=== PATIENT | female | born 1940 | race Caucasian/White ===

== ENCOUNTER 2017-05-22 06:24 | Inpatient (IN) | payer OTHER ==
[2017-05-22 06:33] VITALS: BMI 26.1
--- NOTE | 2017-05-22 07:15 | PDOC ---
*Physical Exam - Vital Signs Last Vital Signs Temp Pulse Resp BP Pulse Ox 97.5 F L 71 20 158/77 96 05/22/17 06:32 05/22/17 06:32 05/22/17 06:32 05/22/17 06:32 05/22/17 06:32 ED Treatment Course - LABORATORY CBC & Chemistry Diagram: 05/22/17 07:45 05/22/17 07:45 Medical Decision Making - Critical Care Time Total Critical Care Time (minutes): 30 Critical Care Statement: The care of this patient involved high complexity decision making to prevent further life threatening deterioration of the patient 's condition and/or to evalute & treat vital organ system(s) failure or risk of failure. - Medical Decision Making 05/22/17 12:00 Agree with LATIN AMERICAN STUDIES PROFESSOR's evaluation, assessment, and plan. Attending Assessment: 77F with seizure d/o on keppra presents to ER after being found down after falling down 9 steps. Fall possibly 2/2 seizure, though pt with no notable post- ictal period. CT C-spine shows possible unstable fx at C2. CT head negative. Pt with full strength and sensation on exam, no appreciable neuro deficits. - frequent neuro checks - C-spine precautions - neurosurgery evaluation - Labs, keppra level 05/22/17 16:[address] Wood on tele monitor for likely nsgy procedure. *DC/Admit/Observation/Transfer Diagnosis at time of Disposition: Seizure Hangman's fracture Qualifiers: Encounter type: initial encounter Fracture type: closed Qualified Code(s): S12.100A - Unspecified displaced fracture of second cervical vertebra, initial encounter for closed fracture Thoracic spine fracture Qualifiers: Thoracic vertebra fracture level: T5 Fracture type: closed Fracture morphology : burst- stable Fracture healing: with routine healing Syncope Qualifiers: Syncope type: unspecified Qualified Code(s): R55 - Syncope and collapse - Discharge Dispostion Condition at time of disposition: Stable Admit: Yes - Attestations Physician Attestion: 05/22/17 16:33 I, Dr. Sohail Ahmadi MD, attest that this document has been prepared under my direction and personally reviewed by me in its entirety. I further attest, that it accurately reflects all work, treatment, procedures and medical decision -making performed by me.
--- NOTE | 2017-05-22 07:25 | PDOC ---
History of Present Illness - General Chief Complaint: Injury Stated Complaint: FALL Time Seen by Provider: 05/22/17 07:15 History Source: Patient Exam Limitations: No Limitations - History of Present Illness Initial Comments: 05/22/17 07:25 CHIEF COMPLAINT: Fall HISTORY OF PRESENT ILLNESS: This is a 77 year old female with a history of HTN, hypothyroidism, seizure disorder (on Keppra, no missed doses, last seizure about one year ago), and dementia brought in by ambulance accompanied by her family after an unwitnessed fall. History is provided by her daughter at bedside. Family heard the patient fall and found her at the bottom of 9 stairs. She was "out of it" for about 15 minutes following the fall, in the same manner that she usually is after a seizure. She has not been able to recall events, but does complain of back pain. She was able to walk to She does not take any anticoagulant or anti-platelet agents. V/s on arrival are unremarkable. PCP is Dr. Flores in [place]. REVIEW OF SYSTEMS: Limited by dementia. Complains of back pain. PHYSICAL EXAM: GENERAL: The patient is awake, alert, oriented x 1 (baseline), in some distress secondary to pain. HEAD: Normal with no signs of trauma. ENT: Pupils equal, round and reactive to light, extraocular movements intact, sclera anicteric, conjunctiva clear. Neck supple. Right mandibular ecchymosis. No tenderness or bony crepitus. LUNGS: Clear to auscultation bilaterally. Normal excursion. No respiratory distress or use of accessory muscles. CV: RRR, S1/S2, no MRG. Cap refill < 2 sec. ABDOMEN: Soft, non-distended, non-tender, reducible ventral hernia. EXTREMITIES: Normal range of motion, no edema. Abrasions over right knee. No ligament laxity. NEUROLOGICAL: Normal speech. CN II-XII grossly intact. No cervical spinal tenderness. Diffuse thoracic and lumbar vertebral tenderness. PSYCH: Normal mood, normal affect. SKIN: Warm, dry, normal turgor. Past History - Past Medical History Allergies/Adverse Reactions: Allergies Allergy/AdvReac Type Severity Reaction Status Date / Time Penicillins Allergy Verified 05/22/17 06:32 Home Medications: Ambulatory Orders Levetiracetam [Keppra] 1,500 mg PO BID 11/25/13 Levothyroxine [Synthroid -] 75 mcg PO DAILY 11/25/13 Losartan Potassium 50 mg PO DAILY 11/25/13 Anemia: No Asthma: No Cancer: No Cardiac Disorders: No CVA: No COPD: No CHF: No Dementia: Yes Diabetes: No GI Disorders: No Disorders: No HTN: Yes Hypercholesterolemia: No Liver Disease: No Seizures: Yes Thyroid Disease: Yes - Surgical History Abdominal Surgery: No Appendectomy: No Cardiac Surgery: No Cholecystectomy: Yes Lung Surgery: No Neurologic Surgery: No Orthopedic Surgery: No - Immunization History Immunization Up to Date: Yes - Psycho/Social/Smoking Cessation Hx Anxiety: No Suicidal Ideation: No Smoking Status: No Smoking History: Never smoked Have you smoked in the past 12 months: No Number of Cigarettes Smoked Daily: 0 Information on smoking cessation initiated: No Hx Alcohol Use: No Drug/Substance Use Hx: No Substance Use Type: None Hx Substance Use Treatment: No *Physical Exam - Vital Signs Last Vital Signs Temp Pulse Resp BP Pulse Ox 97.5 F L 71 20 158/77 96 05/22/17 06:32 05/22/17 06:32 05/22/17 06:32 05/22/17 06:32 05/22/17 06:32 Heart Score/ECG Review - ECG Intrepretation Comment:: 05/22/17 08:42 Sinus rhythm with PACs. Q wave in III also present on prior EKG 07/2015. ED Treatment Course - LABORATORY CBC & Chemistry Diagram: 05/22/17 07:45 05/22/17 07:45 Medical Decision Making - Medical Decision Making 05/22/17 07:59 A/P: 77 year old female with history of seizure disorder s/p unwitnessed fall down 9 steps. 1. Cervical collar applied 2. EKG 3. Cardiac labs + Keppra level, UA/culture 4. CTH and C-spine 5. Xrays thoracic, lumbar/sacral spine, right knee 6. Ofirmev 1g IVPB for pain 7. Home dose Keppra 8. Re-assess 05/22/17 08:45 WBC 13.8. CPK 693 CK-MB 28 05/22/17 09:[address] spine discussed with Dr. Matt: non-displaced transverse fracture of C2 with step-off avulsion fracture of the anterior inferior aspect of C2. T spine CT: acute horizontal fracture traversing the T6 vertebral body. Moderate to marked compression of the T6 vertebral body. Acute nonsidplaced horizontal fractures also noted involving the t^ partes interarticulares bilaterally extending into the lamina to the base of the T6 spinous process. Acute mildly offset fracture of the T6 spinous process. Acute mild to moderate T5 vertebral body compression fracture is noted without bony retropulsion. There is an acute mildly offset fracture of the left T5 transverse process. Acute mildly offset fracture of the T5 spinous process. Acute mildly offset fractures of the T3 and T4 spinous processes. Discussed with Dr. Maya options advisor for neurosurgery. Recommends prompt MRI of cervical and thoracic spines, with CT spine in interim. Family updated with results and plan. 05/22/17 16:09 Troponin repeated. Discussed with Dr. Wood- accepts for admission to telemetry. *DC/Admit/Observation/Transfer Diagnosis at time of Disposition: Seizure Hangman's fracture Qualifiers: Encounter type: initial encounter Fracture type: closed Qualified Code(s): S12.100A - Unspecified displaced fracture of second cervical vertebra, initial encounter for closed fracture Fracture of thoracic spine Qualifiers: Thoracic vertebra fracture level: T5 Fracture type: closed Fracture morphology : burst- stable Fracture healing: with routine healing Syncope Qualifiers: Syncope type: unspecified Qualified Code(s): R55 - Syncope and collapse - Discharge Dispostion Condition at time of disposition: Guarded Admit: Yes
[2017-05-22] MEDS ORDERED: ACETAMINOPHEN 1000 MG/100 ML VIAL (NON FORMULARY) IVPB ONE (07:26)
[2017-05-22 08:00] LABS: BASOPHIL 0.6 % (0-2.0); EOSINOPHIL 1.6 % (0-4.5); MCH 29.8 pg (25.7-33.7); MEAN CELL VOLUME 90.3 fl (80-96); MEAN PLT VOLUME 7.5 fl (7.5-11.1); NEUTROPHILS 79.3 % (42.8-82.8); PLATELET COUNT 211 K/MM3 (134-434); RDW 13.4 % (11.6-15.6); WHITE BLOOD COUNT 13.8 K/mm3 (4.0-10.0)
[2017-05-22 08:21] LABS: ALBUMIN 3.4 g/dl (3.4-5.0); ANION GAP 10 (8-16); BILIRUBIN,TOTAL 0.3 mg/dL (0.2-1.0); CALCIUM 8.7 mg/dL (8.5-10.1); CO2 23 mmol/L (21-32); CREATININE 1.1 mg/dL (0.55-1.02); GLUCOSE,RANDOM 154 mg/dL (74-106); SGOT/AST 39 U/L (15-37); SGPT/ALT 21 U/L (12-78); TOT PROT 7.3 g/dl (6.4-8.2)
[2017-05-22 08:24] LABS: ALK PHOS 95 U/L (45-117); CPK 693 IU/L (26-192); INR 1.01 (0.82-1.09); PROTHROMBIN TIME (PATIENT) 11.1 SEC (9.98-11.88); TROPONIN I 0.03 ng/ml (0.00-0.05)
[2017-05-22] MEDS ORDERED: ACETAMINOPHEN INJECTION 100 ML IVPB ONE (08:40)
[2017-05-22] MEDS ORDERED: levETIRAcetam 500 MG/5 ML INJECTION VIAL IVPB ONE ×2 (09:49→10:12)
[2017-05-22] MEDS ORDERED: morphine CARPU-JECT 2 MG/1 ML DISP.SYRIN IVPUSH ONE (10:02)
[2017-05-22] MEDS ORDERED: morphine CARPU-JECT 4 MG/1 ML DISP.SYRIN ONE ×2 (10:12→12:42)
--- NOTE | 2017-05-22 10:44 | EKG ---
Test Reason : Blood Pressure : / mmHG Vent. Rate : 061 BPM Atrial Rate : 067 BPM P-R Int : 140 ms QRS Dur : 106 ms QT Int : 438 ms P-R-T Axes : 047 -18 116 degrees QTc Int : 440 ms POOR DATA QUALITY, INTERPRETATION MAY BE ADVERSELY AFFECTED SINUS RHYTHM WITH PREMATURE ATRIAL COMPLEXES WITH ABERRANT CONDUCTION INFERIOR INFARCT , AGE UNDETERMINED POSSIBLE ANTERIOR INFARCT , AGE UNDETERMINED ABNORMAL ECG WHEN COMPARED WITH ECG OF 29-JUL-2015 14:14, ABERRANT CONDUCTION IS NOW PRESENT BORDERLINE CRITERIA FOR ANTERIOR INFARCT ARE NOW PRESENT Confirmed by EVELINA GONZALES MD ([id number]) on 05/22/2017 10:44:07 AM Referred By: Confirmed By:EVELINA GONZALES MD
[2017-05-22] MEDS ORDERED: morphine CARPU-JECT 4 MG/1 ML DISP.SYRIN IVPUSH ONE (12:20)
[2017-05-22] MEDS ORDERED: LACTATED RINGERS SOLUTION 1,000 ML IV SCH (12:30)
[2017-05-22 13:50] LABS: URINE APPEARANCE CLEAR; URINE BILIRUBIN NEGATIVE (NEGATIVE); URINE BLOOD NEGATIVE (NEGATIVE); URINE COLOR LTYELLOW; URINE GLUCOSE (UA) NEGATIVE (NEGATIVE); URINE KETONE NEGATIVE (NEGATIVE); URINE LEUK ESTERASE NEGATIVE (NEGATIVE); URINE NITRITE NEGATIVE (NEGATIVE); URINE PROTEIN NEGATIVE (NEGATIVE); URINE UROBILINOGEN NEGATIVE mg/dL (0.2-1.0)
[2017-05-22] MEDS ORDERED: LORazepam 2 MG/ML SDV VIAL ONE (18:59)
--- NOTE | 2017-05-22 21:35 | HP ---
Admitting History and Physical - Admission History of Present Illness: This is a 77 year old female with a history of HTN, hypothyroidism, seizure disorder (on Keppra, no missed doses, last seizure about one year ago), and dementia brought in by ambulance accompanied by her family after an unwitnessed fall. History is provided by her daughter at bedside. Family heard the patient fall and found her at the bottom of 9 stairs. She was "out of it" for about 15 minutes following the fall, in the same manner that she usually is after a seizure. She has not been able to recall events, but does complain of back pain. She was able to walk to She does not take any anticoagulant or anti- platelet agents. 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 Cardiovascular: Yes: HTN Endocrine: Yes: Hypothyroidism - Past Surgical History Past Surgical History: Yes: Hernia Repair (ventral hernia repaired with mesh) - Smoking History Smoking history: Never smoked Have you smoked in the past 12 months: No Aproximately how many cigarettes per day: 0 - Alcohol/Substance Use Hx Alcohol Use: No - Social History ADL: Independent History of Recent Travel: No Home Medications - Allergies Allergies/Adverse Reactions: Allergies Allergy/AdvReac Type Severity Reaction Status Date / Time Penicillins Allergy Verified 05/22/17 06:32 - Home Medications Home Medications: Ambulatory Orders Levetiracetam [Keppra] 1,500 mg PO BID 11/25/13 Levothyroxine [Synthroid -] 75 mcg PO DAILY 11/25/13 Losartan Potassium 50 mg PO DAILY 11/25/13 Family Disease History - Family Disease History Family History: Unremarkable Review of Systems Unable to obtain ROS, reason: Confusion Physical Examination Vital Signs: Vital Signs Temperature 97.2 F L 05/22/17 20:41 Pulse Rate 67 05/22/17 20:41 Respiratory Rate 18 05/22/17 20:41 Blood Pressure 105/65 05/22/17 20:41 O2 Sat by Pulse Oximetry (%) 98 05/22/17 20:41 HENT: Yes: WNL Neck: Yes: WNL, Supple Cardiovascular: Yes: WNL, Regular Rate and Rhythm Respiratory: Yes: WNL, Regular, CTA Bilaterally Gastrointestinal: Yes: WNL, Normal Bowel Sounds, Soft Edema: No Edema: LLE: Trace, RLE: Trace ...Motor Strength: WNL Problem List - Problems (1) Vertebral fracture Assessment/Plan: At this time there is no medical contraindication for pt to under surgical procedure Cardiac clearance consult Code(s): [id number] - (2) Seizure Code(s): R56.9 - UNSPECIFIED CONVULSIONS (3) Syncope Code(s): R55 - SYNCOPE AND COLLAPSE Qualifiers: Syncope type: unspecified Qualified Code(s): R55 - Syncope and collapse (4) Musculoskeletal pain Code(s): M79.1 - MYALGIA
[2017-05-22] MEDS ORDERED: levETIRAcetam 500 MG TABLET (FP) PO SCH (22:00)
[2017-05-22] MEDS ORDERED: HEPARIN NA (PORCINE) 5,000 UNITS/ML 1ML VIAL SQ SCH (22:00)
[2017-05-22] MEDS ORDERED: DEXTROSE 5%-0.45% SALINE 1,000 ML IV SCH (22:30)
--- NOTE | 2017-05-22 23:22 | CONSULT ---
Consult - text type - Consultation Consultation Note: Asked to see this 77-year-old female with history of seizures who fell down nine stairs this morning just before 6 AM. Patient indicated pain in the thoracic spinal region and was brought into the [facility] emergency room. Patient was evaluated with CT scan of the Head and cervical spine. Head CT was unremarkable for acute pathology. CT cervical spine was notable for moderate spondylosis with hyper lordosis and a vertical Coronal fracture through the body of C2 just anterior to the pars articularis. This is similar to a Hangmans type of fracture. The fracture line extends through both transverse foramina. CT of the thoracic spine demonstrates spinous process fractures of T3, T4, T5 and T6. There is a T5 compression fracture with mild anterior loss of height and T6 burst fracture with mild retropulsion of bone and loss of height. The patient is neurologically nonfocal and at her baseline by report. The patient has a history of dementia. There is acute kyphotic angulation at the T56 level. MRA of the craniocervical junction did not reveal any vertebral artery injuries. MRI of the cervical spine does not demonstrate any spinal cord compression or unexpected ligamentous injury. The sub axial spondylosis is moderate. MRI of the thoracic spine does not demonstrate cord compression although there is angulation at T5 and T6. There is STIR abnormality in the posterior elements of the upper middle thoracic spine. The TLICS score for this patient is 5 (2 morphology/0 neurology/3 posterior ligaments) and surgical stabilization is indicated. I had an extensive discussion with the patient's family including several adult children regarding the nature of her injuries and the natural history. It is hoped that the cervical spine fracture will heal with the mobilization since there is no displacement or separation. Since there is no vertebral artery injury anticoagulation should not be required. The thoracic spine injuries however should be addressed surgically. I explained the risks benefits and alternatives T3-8 stabilization with pedicle screws and mild correction of the deformity. The risks included, but were not limited to: , coma, paralysis, bleeding, infection, leakage of CSF possibly requiring spinal drainage or additional surgery, instrumentation malfunction/Malposition/migration and failure to allow healing and prevent neurological progression. I explained that surgery was not mandatory however given her likelihood of having additional falls and poor compliance with bracing as well as the TLICS score suggesting that surgical intervention would represent the best treatment course, I feel that surgery should be considered. All questions were answered. Informed consent was obtained. There was unanimous agreement among all of the patients children and grandchildren as well as other family and family members that she should proceed with surgery. I offered them the option of seeking another opinion or another surgeon. I also informed them of my planned absence between May 25 and . They asked that we proceed with surgery in the morning. I will discuss the patients medical clearance with Dr. Wood. I also explained that we may need to stabilize the C2 fracture with a posterior instrumentation construct if her collar is insufficient to allow fracture healing or she is unable to tolerate the collar. However, this will be decided at a later date.
[2017-05-23 01:53] LABS: TROPONIN I 0.12 ng/ml (0.00-0.05)
[2017-05-23] MEDS ORDERED: levETIRAcetam 500 MG/5 ML INJECTION VIAL IVPB SCH ×2 (04:00→10:00)
[2017-05-23] MEDS ORDERED: LEVOTHYROXINE NA 75 MCG TABLET (FP) PO SCH (07:00)
--- NOTE | 2017-05-23 08:14 | CON.CARD ---
Consult Consult Specialty:: Cardiology Referred by:: Dr. Wood Reason for Consultation:: Preop Cardiac Evaluation - History of Present Illness Chief Complaint: Fall, unwitnessed History of Present Illness: 77F w/ Seizure disorder (last seizure few months ago), HTN fell down stairs presumably due to seizure resulting in compression fracture of thoracic spine for which surgical stabilization was recommended by N-surgery. I am called to evaluate her prior to surgery. History obtained from daughter at bedside. Ms. Negron has no prior cardiac hx. No WA, no prior PCI apart from chronic HTN. Typically, she walks about her home, stairs, with no difficulties: no reported chest pain or anginal sx; no ACRDENAS, no palps, no edema, no PND, no N/V/ diaphoresis. She was reportedly feeling well yesterday prior to the fall, no CV complaints reported to family. Head CT (first CT) showed no pathology, repeat pending. TELE: NSR. Of note, her CPK is elevated and her TnI levels have been mildly elevated above 0 but not > 0.5. Her O2 saturation is 97% on room air. 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 Cardio/Vascular: Yes: HTN Endocrine: Yes: Hypothyroidism - Past Surgical History Past Surgical History: Yes: Cholecystectomy, Hernia Repair (ventral hernia repaired with mesh) - Alcohol/Substance Use Hx Alcohol Use: No - Smoking History Smoking history: Never smoked Have you smoked in the past 12 months: No Aproximately how many cigarettes per day: 0 - Social History Usual Living Arrangement: With Child ADL: Independent History of Recent Travel: No Home Medications - Allergies Allergies/Adverse Reactions: Allergies Allergy/AdvReac Type Severity Reaction Status Date / Time Penicillins Allergy Verified 05/22/17 06:32 - Home Medications Home Medications: Ambulatory Orders Levetiracetam [Keppra] 1,500 mg PO BID 11/25/13 Levothyroxine [Synthroid -] 75 mcg PO DAILY 11/25/13 Losartan Potassium 50 mg PO DAILY 11/25/13 Family Disease History - Family Disease History Family History: Unremarkable (not pertinent to this presentation) Review of Systems Findings/Remarks: SEE HPI - Review of Systems Constitutional: denies: No Symptoms, Chills, Diaphoresis, Fever, Lethargy, Loss of Appetite, Malaise, Night Sweats, Unintentional Wgt. Loss, Weakness, Other Eyes: denies: No Symptoms, Blind Spots, Blurred Vision, Double Vision, Eye Pain , Floaters, Photophobia, Recent Change in Vision, Other HENT: denies: No Symptoms, Difficult Swallowing, Ear Discharge, Ear Pain, Epistaxis, Gingival Bleeding, Hearing Loss, Mouth Swelling, Nasal Congestion, Ocular Prosthesis, Throat Pain, Toothache, Ringing in Ears, Other Neck: reports: Pain on Movement, Stiffness Cardiovascular: denies: No Symptoms, Chest Pain, Edema, Palpitations, Shortness of Breath, Other Respiratory: denies: No Symptoms, Cough, Exercise Intolerance, Hemoptysis, Orthopnea, PND, Snoring, SOB, SOB on Exertion, Wheezing, Other Gastrointestinal: denies: No Symptoms, Abdominal Pain, Bloating, Constipation, Diarrhea, Dysphagia, Indigestion, Melena, Nausea, Rectal Bleeding, Vomiting, Vomiting Blood, Other Genitourinary: denies: No Symptoms, Burning, Discharge, Dysuria, Flank Pain, Frequency, Hematuria, Incontinence, Lesions, Menses, Pain, Testicular Mass, Testicular Pain, Testicular Swelling, Urgency, Vaginal Bleeding, Other Breasts: denies: No Symptoms Reported, See HPI, Breast Implants, Discharge from Nipple, Lumps, Pain, Skin Changes, Other Musculoskeletal: denies: No Symptoms, Back Pain, Crepitus, Decreased ROM, Extremity Pain, Joint Pain, Joint Swelling, Muscle Pain, Muscle Cramps, Muscle Weakness, Other Integumentary: denies: No Symptoms, Blister, Bruising, Change in Color, Eczema, Erythema, Incision, Lesions, Lump, Pallor, Pruritis, Rash, Wound, Other Neurological: reports: Other (neck brace) Endocrine: reports: No Symptoms Hematology/Lymphatic: reports: No Symptoms Psychiatric: reports: No Symptoms - Risk Factors Known Risk Factors: Yes: Hypertension Vital Signs: Vital Signs Temperature 107 F H 05/23/17 06:51 Pulse Rate 107 H 05/23/17 06:51 Respiratory Rate 20 05/23/17 06:51 Blood Pressure 162/75 05/23/17 06:51 O2 Sat by Pulse Oximetry (%) 97 05/23/17 01:00 Constitutional: Yes: Calm Eyes: Yes: Conjunctiva Clear HENT: Yes: Other (Neck brace) Respiratory: Yes: CTA Bilaterally (no wheezing or rales) Gastrointestinal: Yes: Soft (non-tender) Cardiovascular: Yes: Regular Rate and Rhythm JVD: No Carotid Bruit: No PMI: Non-Displaced Heart Sounds: Yes: S1, S2 (RRR, no murmurs, No .) Edema: No (warm, 2+ DP pulses) Peripheral Pulses WNL: Yes Neurological: Yes: Alert - Other Data Labs, Other Data: INR, PTT INR 1.01 (0.82-1.09) 05/22/17 07:45 Troponin, BNP 05/22/17 05/23/17 17:20 00:50 Troponin I Cancelled 0.12 H Troponin, BNP 05/22/17 05/23/17 17:20 00:50 Troponin I Cancelled 0.12 H Laboratory Tests 05/22/17 05/22/17 05/22/17 07:45 07:45 08:03 WBC Hgb Plt Count Potassium Creatine Kinase 693 H Creatine Kinase Index 4.1 Troponin I 0.03 Urine Color Ltyellow Ur Specific Fitzwilliam <= 1.005 Urine Protein Negative Urine Glucose (UA) Negative Urine Ketones Negative Urine Blood Negative Urine Nitrite Negative Urine Bilirubin Negative Urine Urobilinogen Negative Ur Leukocyte Esterase Negative Levetiracetam Pending 05/23/17 05/23/17 05/23/17 00:50 05:35 05:35 WBC Pending Hgb Pending Plt Count Pending Potassium Pending Creatine Kinase 1145 H Creatine Kinase Index 1.8 Troponin I 0.12 H Urine Color Ur Specific Fitzwilliam Urine Protein Urine Glucose (UA) Urine Ketones Urine Blood Urine Nitrite Urine Bilirubin Urine Urobilinogen Ur Leukocyte Esterase Levetiracetam 05/23/17 05:35 WBC Hgb Plt Count Potassium Creatine Kinase Pending Creatine Kinase Index Troponin I Pending Urine Color Ur Specific Fitzwilliam Urine Protein Urine Glucose (UA) Urine Ketones Urine Blood Urine Nitrite Urine Bilirubin Urine Urobilinogen Ur Leukocyte Esterase Levetiracetam Baseline artifact: NSR 61bpm, cannot r/o old IWMI, Poor R wave progression (possibly due to lead position), NSST changes No acute ST changes to suggest ACS, QTc= 440ms TELE: NSR, rare single VPCs Echo: Pending Imaging - Results Chest X-ray: Report Reviewed, Image Reviewed Cat Scan: Report Reviewed MRI: Report Reviewed EKG: Image Reviewed Problem List - Problems (1) Seizure Code(s): R56.9 - UNSPECIFIED CONVULSIONS (2) Thoracic spine fracture Code(s): S22.009A - UNSP FRACTURE OF UNSP THORACIC VERTEBRA, INIT FOR CLOS FX Qualifiers: Thoracic vertebra fracture level: T5 Fracture type: closed Fracture morphology: burst- stable Fracture healing: with routine healing (3) Abnormal ECG Code(s): R94.31 - ABNORMAL ELECTROCARDIOGRAM [ECG] [EKG] (4) Hypertension Code(s): I10 - ESSENTIAL (PRIMARY) HYPERTENSION Qualifiers: Hypertension type: essential hypertension Qualified Code(s): I10 - Essential (primary) hypertension Assessment/Plan IMP: Probable seizure resulting in fall and thoracic spine fracture Chronic HTN Abnormal/Non-specific ECG REC: 1. There are presently no absolute cardiac contraindications to proposed surgical procedure: she is in normal sinus rhythm, euvolemic and with no evidence of aortic stenosis on exam; there is no history of angina and she is currently chest pain free. 2. Her blood pressure is mildly elevated above goal, but she has not received her usual morning BP medication. D/W RN: will give Losartan with small sip of water. 3. Her ECG shows non-specific changes, with possibly old IWMI and poor R wave progression which may be due to lead position. No acute ST elevations and no ST changes typical of ACS; she is asx. -Will repeat ECG and check Echo for EF assessment this morning. 4. CPK likely elevated due to fall. TnI is borderline elevated (non-zero but < 0.5), which can be seen in setting of acute seizure. ECG and symptoms are not suggestive of ACS. To repeat 3rd enzymes this AM. 5. 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
[2017-05-23 08:20] LABS: BASOPHIL 0.2 % (0-2.0); MCH 29.9 pg (25.7-33.7); MCHC 33.3 g/dl (32.0-36.0); MEAN CELL VOLUME 89.9 fl (80-96); MEAN PLT VOLUME 7.8 fl (7.5-11.1); NEUTROPHILS 85.2 % (42.8-82.8); PLATELET COUNT 171 K/MM3 (134-434); RDW 13.4 % (11.6-15.6); WHITE BLOOD COUNT 10.4 K/mm3 (4.0-10.0)
[2017-05-23 08:47] LABS: CALCIUM 8.9 mg/dL (8.5-10.1)
[2017-05-23 09:01] LABS: ALBUMIN 3.6 g/dl (3.4-5.0); ALK PHOS 96 U/L (45-117); ANION GAP 8 (8-16); BILIRUBIN,TOTAL 0.5 mg/dL (0.2-1.0); CO2 26 mmol/L (21-32); GLUCOSE,RANDOM 109 mg/dL (74-106); SGOT/AST 58 U/L (15-37); SGPT/ALT 33 U/L (12-78); THYROID STIMULATING HORMONE 0.65 uIU/ml (0.358-3.74); TOT PROT 7.8 g/dl (6.4-8.2)
[2017-05-23] MEDS ORDERED: GENTAMICIN SO4 80 MG/2 ML VIAL ONE (09:03)
[2017-05-23 09:13] LABS: CPK 1098 IU/L (26-192); TROPONIN I 0.26 ng/ml (0.00-0.05)
[2017-05-23] MEDS ORDERED: LOSARTAN POTASSIUM 50 MG TABLET (FP) PO SCH (10:00)
--- NOTE | 2017-05-23 10:03 | EKG ---
Test Reason : Blood Pressure : / mmHG Vent. Rate : 108 BPM Atrial Rate : 108 BPM P-R Int : 164 ms QRS Dur : 098 ms QT Int : 350 ms P-R-T Axes : 064 -19 105 degrees QTc Int : 469 ms SINUS TACHYCARDIA NONSPECIFIC ST ABNORMALITY VENT. RATE HAS INCREASED BY 47 BPM BORDERLINE CRITERIA FOR ANTERIOR INFARCT ARE NO LONGER PRESENT CRITERIA FOR INFERIOR INFARCT ARE NO LONGER PRESENT Confirmed by STAR ALEX MD ([id number]) on 05/23/2017 10:03:04 AM Referred By: STAR ALEX Confirmed By:STAR ALEX MD
[2017-05-23] MEDS ORDERED: ROCURONIUM BROMIDE 50 MG/5 ML VIAL ONE (11:09)
[2017-05-23] MEDS ORDERED: PROPOFOL 20 ML ONE (11:09)
[2017-05-23] MEDS ORDERED: SUCCINYLCHOLINE CHLORIDE 200 MG/10 ML VIAL ONE (11:10)
[2017-05-23] MEDS ORDERED: LIDOCAINE HCL 0.5% EPINEPHRINE 1:200,000 50 ML VIAL IJ ONE (11:58)
[2017-05-23] MEDS ORDERED: ceFAZolin SODIUM 1 GM VIAL IVPB ONE (11:59)
[2017-05-23] MEDS ORDERED: ePHEDrine SULFATE 50 MG/1 ML AMPULE ONE (12:54)
[2017-05-23] MEDS ORDERED: BUPIVACAINE HCL/PF 0.5% (5MG/ML) 10 ML VIAL ONE (13:32)
[2017-05-23] MEDS ORDERED: GLYCOPYRROLATE 0.2 MG/1 ML VIAL ONE ×2 (13:50)
[2017-05-23] MEDS ORDERED: NEOSTIGMINE METHYLSULFATE 0.5 MG/ML - 10 ML MDV ONE (13:50)
--- NOTE | 2017-05-23 14:38 | SURG ---
Surgery Assistant Teacher Primary Note Assistant Teacher Primary: Edwardo Rehman PA-C Date of Service: 05/23/17 Diagnosis: 1. Spinous process fractures of T3, T4, T5 and T6. 2. T5 compression fracture 3. T6 burst fracture with mild retropulsion of bone Procedure: Posterior decompression/fusion/instrumentation T4-T8 I was present for the entirety of the operative procedure. For further detail, please refer to operative report. Visit type - Case Type Case Type: ED Admission - Emergency Emergency Visit: Yes ED Registration Date: 05/22/17 Care time: The patient presented to the Emergency Department on the above date and was hospitalized for further evaluation of their emergent condition. - New patient This patient is new to me today: Yes Date on this admission: 05/23/17
[2017-05-23] MEDS ORDERED: oxyCODONE HCL 5 MG TABLET PO PRN ×2 (14:41→14:55)
[2017-05-23] MEDS ORDERED: PROMETHAZINE HCL 25 MG/1 ML VIAL IVPUSH PRN ×2 (14:41→14:55)
[2017-05-23] MEDS ORDERED: ONDANSETRON 4 MG/2 ML VIAL IVPUSH PRN ×2 (14:41→14:55)
--- NOTE | 2017-05-23 14:45 | OP ---
Operative Note - Note: Operative Date: 05/23/17 Pre-Operative Diagnosis: 1. Spinous process fractures of T3, T4, T5 and T6. 2. T5 compression fracture. 3. T6 burst fracture with mild retropulsion of bone Operation: Posterior lumbar decompression/fusion/instrumentation T4-T8 Surgeon: Fernandez Maya Inspector Fabric: Edwardo Rehman Anesthesiologist/ASSISTANT TRACK COACH: Richie Bray Anesthesia: General Estimated Blood Loss (mls): 350 Drains & Tubes with Location: KENZIE Drains, Volume Out (mls): 400 (Solitario (clear)) Fluid Volume Replaced (mls): 2,300 Operative Report Dictated: Yes
[2017-05-23] MEDS ORDERED: HYDROmorphone HCL CARPU-JECT 2 MG/1 ML DISP.SYRIN ONE ×2 (15:26→15:33)
[2017-05-23] MEDS: HYDROmorphone HCL CARPU-JECT 1 MG/1 ML DISP.SYRIN IVPUSH PRN (15:33)
[2017-05-23] MEDS: levETIRAcetam 500 MG/5 ML INJECTION VIAL IVPB SCH (16:00)
[2017-05-23] MEDS: DEXTROSE 5%-0.45% SALINE 1,000 ML IV SCH (17:20)
[2017-05-23] MEDS: CEFAZOLIN (PRE-DOCKED) 50 ML IVPB SCH (20:17)
--- NOTE | 2017-05-23 22:42 | CONSULT ---
Consult - text type - Consultation Consultation Note: PULM/CCM Pt seen and examined in the ICU CC: POD #0 spinal fusion HPI: Ms Negron is a 77 year old woman with PMHX notable for HTN, hypothyroidism , seizure disorder well controlled on AE, and dementia after being found at bottom of stairs by family 2/2 unwitnessed fall. Fall was apparently heard by family who then found her at the bottom of 9 stairs. Per report pt was "out of it" for about 15 minutes following the fall, which resembled her post-ictal state. She was c/o back pain and imaging in ED showed multiple fx of the thoracic spine 9Spinous process fractures of T3, T4, T5 and T6. 2. T5 compression fracture. 3. T6 burst fracture with mild retropulsion of bone). She was seen by neuro-surg and today underwent posterior lumbar decompression/ fusion/instrumentation T4-T8. She had approx 350cc of blood loss but tolerate procedure well. She was extubated in PACU and brought to ICU for overnight observation. 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 Cardio/Vascular HTN Endocrine Hypothyroidism Past Surgical History Past Surgical History Hernia Repair (ventral hernia repaired with mesh ) Smoking History Smoking history Never smoked Aproximately how many 0 cigarettes per day Alcohol/Substance Use Hx Alcohol Use No Social History Usual Living Arrangement With Child ADL Independent History of Recent Travel No Ambulatory Orders Levetiracetam [Keppra] 1,500 mg PO BID 11/25/13 Levothyroxine [Synthroid -] 75 mcg PO DAILY 11/25/13 Losartan Potassium 50 mg PO DAILY 11/25/13 Current Medications Hydromorphone HCl (Dilaudid Injection -) 0.5 mg IVPUSH Q4H PRN PRN Reason: PAIN Last Admin: 05/23/17 15:33 Dose: 0.5 mg Cefazolin Sodium (Ancef 1gm Ivpb (Pre-Docked)) 50 mls @ 100 mls/hr IVPB Q8H [facility] Stop: 05/24/17 19:59 Last Admin: 05/23/17 20:17 Dose: 100 mls/hr Dextrose/Sodium Chloride (D5-1/2ns -) 1,000 mls @ 75 mls/hr IV ASDIR [facility] Last Admin: 05/23/17 17:20 Dose: Not Given Levetiracetam (Keppra Injection -) 750 mg IVPB Q12H [facility] Last Admin: 05/23/17 16:00 Dose: 750 mg Levothyroxine Sodium (Synthroid -) 75 mcg PO DAILY@0700 [facility] Losartan Potassium (Cozaar -) 50 mg PO DAILY [facility] Oxycodone HCl (Roxicodone -) 5 mg PO Q4H PRN PRN Reason: MILD PAIN Stop: 05/24/17 14:40 Vital Signs Temp 98 F 05/23/17 18:00 Pulse 104 H 05/23/17 18:00 Resp 14 05/23/17 21:00 BP 143/56 05/23/17 18:00 Pulse Ox 98 05/23/17 21:00 Intake & Output 05/22/17 05/23/17 05/23/17 23:59 11:59 23:59 Intake Total 0 3175 Output Total 800 1060 Balance -800 2115 Weight 56.699 kg Intake: IV 2675 D5-1/2Ns - 1,000 ml @ 75 75 mls/hr IV ASDIR [facility] Rx#: [id number] Oral 0 Other 500 Output: Drainage 100 Back 50 Urine 800 430 Solitario 800 Estimated Blood Loss 30 Other 500 Other: Voiding Method Indwelling Catheter Indwelling Catheter Indwelling Catheter Bowel Movement No Height 4 ft 10 in Body Mass Index (BMI) 26.1 Weight Measurement Method Stated by Caregiver ROS unable due to dementia PE: Neuro: awake, confused (limited by language and dementia, non focal exam), 4/5 upper ext, 5/5 LE HEENT: hard collar in place, R periorbital ecchymosis, no palpable lacerations/ swelling of head PULM: clear anterior CV: RRR, no mr/g ABD: soft, non tender, non distended EXT: w/w/p, + pulses throughout 77 y/o woman with sz disorder and dementia sustained numerous fx of cervical and thoracic fine in fall down stairs P/ -maintain Collar in line immobilization -monitor drain output -empiric abx as per surgical team, intraop cefazolin -pain management with oxycodone, unlikely to utilize CASINO FLOOR SUPERVISOR effectively -cont AE and monitor for sz -obsevation in ICU -SCD, no indication for GI prophy Garrick Wilkerson [facility] [id number]
[2017-05-23 22:52] LABS: TROPONIN I 0.35 ng/ml (0.00-0.05)
--- NOTE | 2017-05-23 23:44 | PN ---
Progress Note, Physician History of Present Illness: Pt tolerated surgery - Current Medication List Current Medications: Active Medications Hydromorphone HCl (Dilaudid Injection -) 0.5 mg IVPUSH Q4H PRN PRN Reason: PAIN Last Admin: 05/23/17 15:33 Dose: 0.5 mg Cefazolin Sodium (Ancef 1gm Ivpb (Pre-Docked)) 50 mls @ 100 mls/hr IVPB Q8H [facility] Stop: 05/24/17 19:59 Last Admin: 05/23/17 20:17 Dose: 100 mls/hr Dextrose/Sodium Chloride (D5-1/2ns -) 1,000 mls @ 75 mls/hr IV ASDIR [facility] Last Admin: 05/23/17 17:20 Dose: Not Given Levetiracetam (Keppra Injection -) 750 mg IVPB Q12H [facility] Last Admin: 05/23/17 16:00 Dose: 750 mg Levothyroxine Sodium (Synthroid -) 75 mcg PO DAILY@0700 [facility] Losartan Potassium (Cozaar -) 50 mg PO DAILY [facility] Oxycodone HCl (Roxicodone -) 5 mg PO Q4H PRN PRN Reason: MILD PAIN Stop: 05/24/17 14:40 - Objective Vital Signs: Vital Signs Temperature 98.2 F 05/23/17 22:00 Pulse Rate 93 H 05/23/17 22:00 Respiratory Rate 16 05/23/17 22:00 Blood Pressure 139/59 05/23/17 22:00 O2 Sat by Pulse Oximetry (%) 98 05/23/17 21:00 Constitutional: Yes: No Distress Cardiovascular: Yes: WNL, Regular Rate and Rhythm Respiratory: Yes: WNL, Regular, CTA Bilaterally Gastrointestinal: Yes: WNL, Normal Bowel Sounds, Soft Labs: CBC, BMP 05/23/17 05:35 05/23/17 05:35 INR, PTT INR 1.01 (0.82-1.09) 05/22/17 07:45 Problem List - Problems (1) Vertebral fracture Assessment/Plan: S/P thoracic lamnectomy(T4-T8) w/ fusion As per surgery Code(s): [id number] - (2) Seizure Assessment/Plan: Cont keppra Code(s): R56.9 - UNSPECIFIED CONVULSIONS (3) Syncope Assessment/Plan: Resolved Code(s): R55 - SYNCOPE AND COLLAPSE Qualifiers: Syncope type: unspecified Qualified Code(s): R55 - Syncope and collapse (4) Hypertension Assessment/Plan: BP stable Cont losartan Code(s): I10 - ESSENTIAL (PRIMARY) HYPERTENSION Qualifiers: Hypertension type: essential hypertension Qualified Code(s): I10 - Essential (primary) hypertension (5) Hypothyroidism Assessment/Plan: Cont levothyroxine Code(s): E03.9 - HYPOTHYROIDISM, UNSPECIFIED (6) Dementia Assessment/Plan: Cont aricept Code(s): F03.90 - UNSPECIFIED DEMENTIA WITHOUT BEHAVIORAL DISTURBANCE
[2017-05-24] MEDS: HYDROmorphone HCL CARPU-JECT 1 MG/1 ML DISP.SYRIN IVPUSH PRN ×2 (01:00→20:46)
[2017-05-24] MEDS: CEFAZOLIN (PRE-DOCKED) 50 ML IVPB SCH ×2 (03:00→12:11)
[2017-05-24] MEDS: levETIRAcetam 500 MG/5 ML INJECTION VIAL IVPB SCH ×2 (03:00→16:50)
[2017-05-24] MEDS: LEVOTHYROXINE NA 75 MCG TABLET (FP) PO SCH (06:37)
--- NOTE | 2017-05-24 09:29 | PN ---
Progress Note, Physician - Current Medication List Current Medications: Active Medications Hydromorphone HCl (Dilaudid Injection -) 0.5 mg IVPUSH Q4H PRN PRN Reason: PAIN Last Admin: 05/24/17 01:00 Dose: 0.5 mg Cefazolin Sodium (Ancef 1gm Ivpb (Pre-Docked)) 50 mls @ 100 mls/hr IVPB Q8H [facility] Stop: 05/24/17 19:59 Last Admin: 05/24/17 03:00 Dose: 100 mls/hr Dextrose/Sodium Chloride (D5-1/2ns -) 1,000 mls @ 75 mls/hr IV ASDIR [facility] Last Admin: 05/23/17 17:20 Dose: Not Given Levetiracetam (Keppra Injection -) 750 mg IVPB Q12H [facility] Last Admin: 05/24/17 03:00 Dose: 750 mg Levothyroxine Sodium (Synthroid -) 75 mcg PO DAILY@0700 [facility] Last Admin: 05/24/17 06:37 Dose: Not Given Losartan Potassium (Cozaar -) 50 mg PO DAILY [facility] Oxycodone HCl (Roxicodone -) 5 mg PO Q4H PRN PRN Reason: MILD PAIN Stop: 05/24/17 14:40 - Objective Vital Signs: Vital Signs Temperature 98.2 F 05/24/17 06:00 Pulse Rate 103 H 05/24/17 08:00 Respiratory Rate 18 05/24/17 08:00 Blood Pressure 105/88 05/24/17 08:00 O2 Sat by Pulse Oximetry (%) 96 05/24/17 08:10 Eyes: Yes: WNL, Conjunctiva Clear, EOM Intact HENT: Yes: WNL, Atraumatic, Normocephalic Neck: Yes: WNL, Supple, Trachea Midline Cardiovascular: Yes: WNL, Regular Rate and Rhythm Respiratory: Yes: WNL, Regular, CTA Bilaterally Gastrointestinal: Yes: WNL, Normal Bowel Sounds Genitourinary: Yes: WNL Musculoskeletal: Yes: WNL Extremities: Yes: WNL Edema: No Integumentary: Yes: WNL Neurological: Yes: WNL, Alert, Oriented ...Motor Strength: WNL Psychiatric: Yes: WNL Labs: CBC, BMP 05/23/17 05:35 05/23/17 05:35 INR, PTT INR 1.01 (0.82-1.09) 05/22/17 07:45 Assessment/Plan Probable seizure resulting in fall and thoracic spine fracture Chronic HTN Abnormal/Non-specific ECG REC: 1. There are presently no absolute cardiac contraindications to proposed surgical procedure: she is in normal sinus rhythm, euvolemic and with no evidence of aortic stenosis on exam; there is no history of angina and she is currently chest pain free. 2. Her blood pressure is mildly elevated above goal, but she has not received her usual morning BP medication. D/W RN: will give Losartan with small sip of water. 3. Her ECG shows non-specific changes, with possibly old IWMI and poor R wave progression which may be due to lead position. No acute ST elevations and no ST changes typical of ACS; she is asx. -Will repeat ECG and check Echo for EF assessment this morning. 4. CPK likely elevated due to fall. TnI is borderline elevated (non-zero but < 0.5), which can be seen in setting of acute seizure. ECG and symptoms are not suggestive of ACS. 5. Would continue to cycle enzymes and follow ECG post op; in light of age and HTN she is at moderate periop risk for cardiac events ([place], arrhythmia, volume overload) and this was d/w family who wish to proceed w/ surgery for pain control, preservation of mobility for improved longterm quality of life and to avoid possible damage to spinal cord from fracture. cc time [address] Healy
[2017-05-24] MEDS: LOSARTAN POTASSIUM 50 MG TABLET (FP) PO SCH ×2 (11:16→12:41)
--- NOTE | 2017-05-24 13:49 | PN ---
Progress Note (short form) - Note Progress Note: PULM/CCM Pt seen and examined in the ICU CC: POD #1 spinal fusion 24Hr: no events overnight, minimal drainage output, no fever, CT done Ambulatory Orders Levetiracetam [Keppra] 1,500 mg PO BID 11/25/13 Levothyroxine [Synthroid -] 75 mcg PO DAILY 11/25/13 Losartan Potassium 50 mg PO DAILY 11/25/13 Vital Signs Temp 98.2 F 05/24/17 06:00 Pulse 103 H 05/24/17 08:00 Resp 18 05/24/17 08:00 BP 105/88 05/24/17 08:00 Pulse Ox 96 05/24/17 08:10 Intake & Output 05/23/17 05/24/17 05/24/17 23:59 11:59 23:59 Intake Total 3600 525 Output Total 1360 400 Balance 2240 125 Weight 57.379 kg Intake: IV 3050 525 D5-1/2Ns - 1,000 ml @ 75 450 525 mls/hr IV ASDIR [facility] Rx#: [id number] IVPB 50 Other 500 Output: Drainage 200 100 Back 150 100 Urine 630 300 Solitario 200 300 Estimated Blood Loss 30 Other 500 Other: Voiding Method Indwelling Catheter Indwelling Catheter Weight Measurement Method Built in [facility] ROS unable due to dementia PE: Neuro: awake, confused (limited by language and dementia, non focal exam), 4/5 upper ext, 5/5 LE HEENT: hard collar in place, R periorbital ecchymosis, no palpable lacerations/ swelling of head PULM: clear anterior CV: RRR, no mr/g ABD: soft, non tender, non distended EXT: w/w/p, + pulses throughout 77 y/o woman with sz disorder and dementia sustained numerous fx of cervical and thoracic fine in fall down stairs P/ -maintain Collar in line immobilization -monitor drain output -empiric abx as per surgical team, intraop cefazolin given -pain management with oxycodone, unlikely to utilize PATROL SERGEANT effectively -cont AE and monitor for sz -obsevation in ICU -SCD, no indication for GI prophy -ok for med surg, if ok with neuro-surg -needs speech and swallow while collar in place Garrick Wilkerson [facility] [id number]
--- NOTE | 2017-05-24 15:03 | PN ---
Progress Note (short form) - Note Progress Note: Patient recovering well from T4-8 stabilization. Pain appears to be reasonably well controlled and patient is wearing collar. Patient is at her Neurological baseline and family reports that she has no complaints. She may get out of bed and Physical Therapy may be initiated. While not absolutely necessary, patient may derive benefit/comfort from a simple fabric Thoraco-Lumbar brace. Drain may be removed Friday morning (or Friday when PA team returns). Discussed case with Nursing and Family. All questions answered.
--- NOTE | 2017-05-24 16:09 | PN ---
Progress Note (short form) - Note Progress Note: PATIENT SEEN BEDSIDE S/P THORACIC LAMINECTOMY WITH FUSION UNDER GENERAL ANESTHESIA POST OP DAY ONE. PATIENT APPEARS IN NO ACUTE DISTRESS, IS DEMENTED SO UNABLE TO ANSWER QUESTIONS. NO APPARENT ADVERSE EFFECTS OF THE ANESTHETIC. DEPT OF ANESTHESIA WILL SIGN OFF CARE AT THIS TIME.
[2017-05-24 16:47] LABS: MCH 30.1 pg (25.7-33.7); MCHC 33.2 g/dl (32.0-36.0); MEAN CELL VOLUME 90.5 fl (80-96); MEAN PLT VOLUME 8.3 fl (7.5-11.1); PLATELET COUNT 133 K/MM3 (134-434); RDW 13.4 % (11.6-15.6)
[2017-05-24] MEDS: DEXTROSE 5%-0.45% SALINE 1,000 ML IV SCH (16:54)
[2017-05-25] MEDS: HYDROmorphone HCL CARPU-JECT 1 MG/1 ML DISP.SYRIN IVPUSH PRN ×2 (01:15→21:09)
[2017-05-25] MEDS: levETIRAcetam 500 MG/5 ML INJECTION VIAL IVPB SCH ×3 (03:44→19:50)
[2017-05-25] MEDS: LEVOTHYROXINE NA 75 MCG TABLET (FP) PO SCH (06:20)
[2017-05-25 06:29] LABS: MCH 29.8 pg (25.7-33.7); MCHC 32.5 g/dl (32.0-36.0); MEAN CELL VOLUME 91.8 fl (80-96); MEAN PLT VOLUME 7.9 fl (7.5-11.1); PLATELET COUNT 131 K/MM3 (134-434); RDW 13.5 % (11.6-15.6); WHITE BLOOD COUNT 12.3 K/mm3 (4.0-10.0)
[2017-05-25 07:15] LABS: TROPONIN I 0.33 ng/ml (0.00-0.05)
--- NOTE | 2017-05-25 07:39 | PN ---
Progress Note (short form) - Note Progress Note: PULMONARY/CRITICAL CARE FOLLOW UP: Progress Note (short form) - Note Progress Note: PULM/CCM Pt seen and examined in the ICU 24 HOUR EVENTS: -Afebrile, minimal drain output Current Medications Hydromorphone HCl (Dilaudid Injection -) 0.5 mg IVPUSH Q4H PRN PRN Reason: PAIN Last Admin: 05/25/17 01:15 Dose: 0.5 mg Dextrose/Sodium Chloride (D5-1/2ns -) 1,000 mls @ 75 mls/hr IV ASDIR [facility] Last Admin: 05/24/17 16:54 Dose: 75 mls/hr Levetiracetam (Keppra Injection -) 750 mg IVPB Q12H [facility] Last Admin: 05/25/17 03:44 Dose: 750 mg Levothyroxine Sodium (Synthroid -) 75 mcg PO DAILY@0700 [facility] Last Admin: 05/25/17 06:20 Dose: 75 mcg Losartan Potassium (Cozaar -) 50 mg PO DAILY [facility] Last Admin: 05/24/17 12:41 Dose: 50 mg Vital Signs Temp 98.1 F 05/25/17 06:00 Pulse 98 H 05/25/17 06:00 Resp 18 05/25/17 06:00 BP 121/51 05/25/17 06:00 Pulse Ox 98 05/24/17 21:00 Intake & Output 05/24/17 05/25/17 05/25/17 18:59 06:59 18:59 Intake Total 1025 1550 Output Total 120 630 Balance 905 920 Weight 58.598 kg Intake: IV 825 900 D5-1/2Ns - 1,000 ml @ 75 825 900 mls/hr IV ASDIR [facility]PH[facility] Rx#: [id number] IVPB 200 100 Oral 550 Output: Drainage 120 80 Back 120 80 Urine 550 Solitario 550 Other: Voiding Method Indwelling Catheter Indwelling Catheter Weight Measurement Method Built in [facility] PE: Neuro: awake, moves all ext, equal corporate compliance manager HEENT: hard collar in place, R periorbital ecchymosis, no palpable lacerations/ swelling of head PULM: clear anterior CV: RRR, no mr/g ABD: soft, non tender, non distended EXT: w/w/p, + pulses throughout ASSESSMENT 77 y/o woman with sz disorder and dementia sustained numerous fx of cervical and thoracic fine in fall down stairs PLAN -maintain Collar in line immobilization -monitor drain output -empiric abx as per surgical team, intraop cefazolin given -pain management with oxycodone, unlikely to utilize NURSING STAFF DEVELOPMENT COORDINATOR effectively -cont AE and monitor for sz -obsevation in ICU -SCD, no indication for GI prophy -needs speech and swallow while collar in place Transfer to the floor [facility] [id number]
--- NOTE | 2017-05-25 09:03 | PN ---
Progress Note, Physician - Current Medication List Current Medications: Active Medications Hydromorphone HCl (Dilaudid Injection -) 0.5 mg IVPUSH Q4H PRN PRN Reason: PAIN Last Admin: 05/25/17 01:15 Dose: 0.5 mg Dextrose/Sodium Chloride (D5-1/2ns -) 1,000 mls @ 75 mls/hr IV ASDIR [facility] Last Admin: 05/24/17 16:54 Dose: 75 mls/hr Levetiracetam (Keppra Injection -) 750 mg IVPB Q12H [facility] Last Admin: 05/25/17 03:44 Dose: 750 mg Levothyroxine Sodium (Synthroid -) 75 mcg PO DAILY@0700 [facility] Last Admin: 05/25/17 06:20 Dose: 75 mcg Losartan Potassium (Cozaar -) 50 mg PO DAILY [facility] Last Admin: 05/24/17 12:41 Dose: 50 mg - Objective Vital Signs: Vital Signs Temperature 98.1 F 05/25/17 06:00 Pulse Rate 108 H 05/25/17 08:00 Respiratory Rate 16 05/25/17 08:00 Blood Pressure 121/52 05/25/17 08:00 O2 Sat by Pulse Oximetry (%) 98 05/24/17 21:00 Eyes: Yes: WNL, Conjunctiva Clear, EOM Intact HENT: Yes: WNL, Atraumatic, Normocephalic Neck: Yes: WNL, Supple, Trachea Midline Cardiovascular: Yes: WNL, Regular Rate and Rhythm Respiratory: Yes: WNL, Regular, CTA Bilaterally Gastrointestinal: Yes: WNL, Normal Bowel Sounds Genitourinary: Yes: WNL Musculoskeletal: Yes: WNL Extremities: Yes: WNL Edema: No Integumentary: Yes: WNL Neurological: Yes: WNL, Alert, Oriented ...Motor Strength: WNL Psychiatric: Yes: WNL Labs: CBC, BMP 05/25/17 05:15 05/23/17 05:35 INR, PTT INR 1.01 (0.82-1.09) 05/22/17 07:45 Assessment/Plan Probable seizure resulting in fall and thoracic spine fracture Chronic HTN Abnormal/Non-specific ECG REC: 1. There are presently no absolute cardiac contraindications to proposed surgical procedure: she is in normal sinus rhythm, euvolemic and with no evidence of aortic stenosis on exam; there is no history of angina and she is currently chest pain free. 2. Her blood pressure is mildly elevated above goal, but she has not received her usual morning BP medication. D/W RN: will give Losartan with small sip of water. 3. Her ECG shows non-specific changes, with possibly old IWMI and poor R wave progression which may be due to lead position. No acute ST elevations and no ST changes typical of ACS; she is asx. -Will repeat ECG and check Echo for EF assessment this morning. 4. CPK likely elevated due to fall. TnI is borderline elevated (non-zero but < 0.5), which can be seen in setting of acute seizure. ECG and symptoms are not suggestive of ACS. 5. Would continue to cycle enzymes and follow ECG post op; in light of age and HTN she is at moderate periop risk for cardiac events ([place], arrhythmia, volume overload) and this was d/w family who wish to proceed w/ surgery for pain control, preservation of mobility for improved senior care quality of life and to avoid possible damage to spinal cord from fracture. cc time [address] Healy
[2017-05-25] MEDS: LOSARTAN POTASSIUM 50 MG TABLET (FP) PO SCH (10:59)
[2017-05-25] MEDS: DEXTROSE 5%-0.45% SALINE 1,000 ML IV SCH (19:51)
--- NOTE | 2017-05-25 23:07 | PN ---
Progress Note, Physician History of Present Illness: No new changes - Current Medication List Current Medications: Active Medications Hydromorphone HCl (Dilaudid Injection -) 0.5 mg IVPUSH Q4H PRN PRN Reason: PAIN Last Admin: 05/25/17 21:09 Dose: 0.5 mg Dextrose/Sodium Chloride (D5-1/2ns -) 1,000 mls @ 75 mls/hr IV ASDIR [facility] Last Admin: 05/25/17 19:51 Dose: Not Given Levetiracetam (Keppra Injection -) 750 mg IVPB Q12H [facility] Last Admin: 05/25/17 19:50 Dose: Not Given Levothyroxine Sodium (Synthroid -) 75 mcg PO DAILY@0700 [facility] Last Admin: 05/25/17 06:20 Dose: 75 mcg Losartan Potassium (Cozaar -) 50 mg PO DAILY [facility] Last Admin: 05/25/17 10:59 Dose: 50 mg - Objective Vital Signs: Vital Signs Temperature 99 F 05/25/17 18:00 Pulse Rate 107 H 05/25/17 18:00 Respiratory Rate 22 05/25/17 18:00 Blood Pressure 133/72 05/25/17 18:00 O2 Sat by Pulse Oximetry (%) 96 05/25/17 09:00 Constitutional: Yes: No Distress HENT: Yes: WNL Neck: Yes: WNL, Supple Cardiovascular: Yes: WNL, Regular Rate and Rhythm Respiratory: Yes: WNL, Regular, CTA Bilaterally Gastrointestinal: Yes: WNL, Normal Bowel Sounds, Soft Labs: CBC, BMP 05/25/17 05:15 05/23/17 05:35 INR, PTT INR 1.01 (0.82-1.09) 05/22/17 07:45 Problem List - Problems (1) Vertebral fracture Assessment/Plan: S/P thoracic lamnectomy(T4-T8) w/ fusion PT eval Code(s): [id number] - (2) Seizure Assessment/Plan: Cont keppra Code(s): R56.9 - UNSPECIFIED CONVULSIONS (3) Syncope Code(s): R55 - SYNCOPE AND COLLAPSE Qualifiers: Syncope type: unspecified Qualified Code(s): R55 - Syncope and collapse (4) Musculoskeletal pain Code(s): M79.1 - MYAL[place]IA
[2017-05-25] MEDS ORDERED: HYDROmorphone HCL CARPU-JECT 1 MG/1 ML DISP.SYRIN IVPB PRN (23:42)
[2017-05-25] MEDS ORDERED: DEXTROSE 5%-0.45% SALINE 1,000 ML IV SCH (23:42)
[2017-05-26] MEDS: levETIRAcetam 500 MG/5 ML INJECTION VIAL IVPB SCH ×2 (03:59→16:35)
[2017-05-26] MEDS: LEVOTHYROXINE NA 75 MCG TABLET (FP) PO SCH (06:34)
[2017-05-26 08:33] LABS: BASOPHIL 0.4 % (0-2.0); EOSINOPHIL 2.9 % (0-4.5); MCH 29.8 pg (25.7-33.7); MCHC 33.7 g/dl (32.0-36.0); MEAN CELL VOLUME 88.4 fl (80-96); MEAN PLT VOLUME 8.1 fl (7.5-11.1); NEUTROPHILS 71.7 % (42.8-82.8); PLATELET COUNT 137 K/MM3 (134-434); RDW 14.6 % (11.6-15.6); WHITE BLOOD COUNT 10.3 K/mm3 (4.0-10.0)
[2017-05-26 09:02] LABS: ANION GAP 8 (8-16); CALCIUM 7.4 mg/dL (8.5-10.1); CO2 26 mmol/L (21-32); CREATININE 0.8 mg/dL (0.55-1.02); GLUCOSE,RANDOM 139 mg/dL (74-106); MAGNESIUM 1.9 mg/dL (1.8-2.4); PHOSPHOROUS 1.7 mg/dL (2.5-4.9)
[2017-05-26] MEDS: HEPARIN NA (PORCINE) 5,000 UNITS/ML 1ML VIAL SQ SCH ×2 (10:15→21:06)
[2017-05-26] MEDS: LOSARTAN POTASSIUM 50 MG TABLET (FP) PO SCH (10:15)
--- NOTE | 2017-05-26 10:41 | PN ---
Progress Note, Physician History of Present Illness: seen and examined today in [facility]. awake and alert but seems disoriented, nursing staffing coordinator acted as shirring tender. pt requests the cspine colar be removed as it is uncomfortable and requests to sit up. - Current Medication List Current Medications: Active Medications Heparin Sodium (Porcine) (Heparin -) 5,000 unit SQ BID [facility] Last Admin: 05/26/17 10:15 Dose: 5,000 unit Hydromorphone HCl (Dilaudid Injection -) 0.5 mg IVPB Q4H PRN PRN Reason: PAIN Dextrose/Sodium Chloride (D5-1/2ns -) 1,000 mls @ 75 mls/hr IV ASDIR [facility] Last Admin: 05/25/17 23:49 Dose: Not Given Levetiracetam (Keppra Injection -) 750 mg IVPB Q12H [facility] Last Admin: 05/26/17 03:59 Dose: 750 mg Levothyroxine Sodium (Synthroid -) 75 mcg PO DAILY@0700 [facility] Last Admin: 05/26/17 06:34 Dose: 75 mcg Losartan Potassium (Cozaar -) 50 mg PO DAILY [facility] Last Admin: 05/26/17 10:15 Dose: 50 mg - Objective Vital Signs: Vital Signs Temperature 98.3 F 05/26/17 06:00 Pulse Rate 112 H 05/26/17 06:00 Respiratory Rate 20 05/26/17 06:00 Blood Pressure 167/73 05/26/17 06:00 O2 Sat by Pulse Oximetry (%) 96 05/25/17 09:00 Constitutional: Yes: No Distress, Calm Eyes: Yes: Conjunctiva Clear, EOM Intact Neck: Yes: Other (immobilized) Cardiovascular: Yes: Regular Rate and Rhythm, S1, S2. No: Bradycardia, Tachycardia, Pulse Irregular, Bruit, JVD, Gallop, Murmur, Rub, S3, S4, Varicosities Respiratory: Yes: Regular, CTA Bilaterally. No: Rales, Rhonchi, Wheezes Gastrointestinal: Yes: Normal Bowel Sounds, Soft. No: Distention, Tenderness Edema: No Peripheral Pulses WNL: Yes Peripheral Pulses: Left Doralis Pedis: 2+, Right Dorsalis Pedis: 2+ Neurological: Yes: Alert. No: Oriented Psychiatric: Yes: Alert. No: Oriented Labs: CBC, BMP 05/26/17 07:05 05/26/17 07:05 INR, PTT INR 1.01 (0.82-1.09) 05/22/17 07:45 - ....Imaging Chest X-ray: Report Reviewed, Image Reviewed EKG: Report Reviewed, Image Reviewed Other: Report Reviewed, Image Reviewed Assessment/Plan Probable seizure resulting in fall and cervical and thoracic spine fractures s/ p surgical stabilization Perioperative cardiac risk stratification Chronic HTN Abnormal/Non-specific ECG REC: Periop cardiac risk stratification -pt tolerates procedure well from a cardiac standpoint -slightly elevated troponin pre and post op, trend has remained mostly flat but did slightly trend up today -elevated cardiac enzymes believed to be due to seizure -would trend cardiac enzymes until clearly trending down -EKG did not show evidence of ischemia -echo preop showed low normal LV systolic function, mod to sev MR, mild AR/TR, mild Pulm htn HTN-blood pressure trend is variable, SBP 90s early this am, 167 later this am -cont current Losartan and monitor for now -BP likely elevated at times due to discomfort, agitation
--- NOTE | 2017-05-26 11:33 | CONSULT ---
Consult - text type - Consultation Consultation Note: NEUROLOGY CONSULTATION is greatly appreciated: Complex events reviewed. Patient examined. This 77 yo woman lives with her family. PMH sig for HTN, Hypothyroidism, seizure disorder and dementia. On Losartan, L-thyroxin, Levetiracetam (750 mg BID) and apparently no meds for cognition. Admitted on night after unwitnessed fall at home down 9 steps with Head and spinal trauma. Apparently poorly responsive for 15 mins. IN ER had CT of head without evidence for intracranial bleeding. However, CT of Cervical and thoracic spines showed extensive pathology confirmed by MRI including: Hangman's fracture at C2; fractured spinous processes of T3-T8: Compression fracture at T5 and a blow-out fracture at T6 with epidural fragment and bleeding. Taken to OR on Friday for laminectomies of T4-T8 with instrumentation to stabilize T5 and 6. Cervical fracture stabilized in [place] collar. DARRELL: R jaw ecchymosis. No Alvares's signs. NEURO: Awake and alert. Denies pain Oriented x home. Cannot remember she is in the hospital for > 1 min. No month, year or president. (interviewed in [place]). + Glabella Moves all fours well. Symmetrical grasps. Normal reflexes. Downgoing toes. Withdraws all fours to pinch. IMP: Moderately severe, B/L, cerebral dysfunction (OMS, Chronic) c/w Alzheimer' s Disease (AD). Non-focal exam- no evidence for CVA or myelopathy at this time. Seizure disorder by history. SUGGEST: Continue NS care by Dr. Banerjee including long-term use of [place] collar. Continue levetiracetam 750 mg IV q 12 hrs until taking PO then switch to oral med. Check B12, TSH, T4, RPR When stable, begin Donepezil 5 mg PO q AM. Mobilize OOB to chair with bedside PT as per Dr. Banerjee. Thank you very much, Nir Randall MD
[2017-05-26] MEDS ORDERED: POTASSIUM PHOSPHATE 15 MM in SODIUM CHLORIDE 250 ML IVPB ONE (16:00)
--- NOTE | 2017-05-26 16:07 | PN ---
Physical Exam: SUBJECTIVE: Patient seen and examined. She is OOB to chair and ambulated with PT. Daughter at bedside OBJECTIVE: Vital Signs Period Temp Pulse Resp BP Sys/Atkins Pulse Ox Last 24 Hr 98.3 F-99.2 F 102-112 20-22 133-167/72-94 Pe Neuro: alert,a awake, cn 2-12intact C collar in place Pulm: bi basilar crackles CV: s1 s2 rrr no mrg Abd: s nt nd + bs Ext: warm, no le edema + hematomas to upper ext Laboratory Results - last 24 hr 05/26/17 05/26/17 05/26/17 07:05 07:05 07:05 WBC 10.3 H RBC 3.30 L D Hgb 9.8 L D Hct 29.2 L D MCV 88.4 MCH 29.8 MCHC 33.7 RDW 14.6 Plt Count 137 MPV 8.1 Neutrophils % 71.7 Lymphocytes % 12.1 D Monocytes % 12.9 H D Eosinophils % 2.9 D Basophils % 0.4 Sodium 138 Potassium 3.5 Chloride 104 Carbon Dioxide 26 Anion Gap 8 BUN 11 D Creatinine 0.8 Random Glucose 139 H D Calcium 7.4 L Phosphorus 1.7 L Magnesium 1.9 Troponin I 0.44 H Active Medications Generic Name Dose Route Start Last Admin Trade Name Lexis PRN Reason Stop Dose Admin Heparin Sodium (Porcine) 5,000 unit 05/26/17 10:00 05/26/17 10:15 Heparin - SQ 5,000 unit BID STEPHANIE Administration Hydromorphone HCl 0.5 mg 05/25/17 23:42 Dilaudid Injection - IVPB Q4H PRN PAIN Potassium Phosphate 15 mm/ 255 mls @ 62.5 mls/hr 05/26/17 16:00 Sodium Chloride IVPB 05/26/17 20:04 ONCE ONE Levetiracetam 750 mg 05/26/17 04:00 05/26/17 03:59 Keppra Injection - IVPB 750 mg Q12H STEPHANIE Administration Levothyroxine Sodium 75 mcg 05/26/17 07:00 05/26/17 06:34 Synthroid - PO 75 mcg DAILY@0700 STEPHANIE Administration Losartan Potassium 50 mg 05/26/17 10:00 05/26/17 10:15 Cozaar - PO 50 mg DAILY STEPHANIE Administration Potassium Phos/Sodium Phos 1 packet 05/26/17 22:00 Phos-Nak Packet - PO BID STEPHANIE Plan: 1. Vertebral fracture - S/P thoracic lamnectomy(T4-T8) w/ fusion - PT daily - Maintain c collar, care defer to Dr. Banerjee 2. R/o Dementia - Check B12, TSH, T4, RPR 3. Seizure - Switch keppra 750mg BID IV to PO today - Start Donepezil mg qam tomorrow 4. Syncope - Carotid doppler pending due to c collar instructions, defer to neuro surgery if can remove 5. Hypophosphatemia - k phos BID - Potassium phosphate 12mm IV x1 6. HTN - Losartan 50mg daily 7. Rhabdo? - s/p fall - Stop fluids - CPK stable Visit type - Emergency Visit Emergency Visit: Yes ED Registration Date: 05/22/17 Care time: The patient presented to the Emergency Department on the above date and was hospitalized for further evaluation of their emergent condition. - New Patient This patient is new to me today: Yes Date on this admission: 05/26/17 - Critical Care Critical Care patient: No
[2017-05-26] MEDS: levETIRAcetam 500 MG TABLET (FP) PO SCH (21:06)
[2017-05-26] MEDS: NAPH,MB-DB/K PH,MBDB POWDER PACKET PO SCH (21:07)
[2017-05-27] MEDS: LEVOTHYROXINE NA 75 MCG TABLET (FP) PO SCH (06:39)
--- NOTE | 2017-05-27 07:56 | PROC ---
Procedure Note Procedure: KENZIE removed fully intact. Occlusive dressing applied. Patient tolerated procedure well.
[2017-05-27 09:08] LABS: BASOPHIL 0.5 % (0-2.0); EOSINOPHIL 1.4 % (0-4.5); MCH 30.1 pg (25.7-33.7); MCHC 33.8 g/dl (32.0-36.0); MEAN CELL VOLUME 88.9 fl (80-96); MEAN PLT VOLUME 8.4 fl (7.5-11.1); NEUTROPHILS 73.9 % (42.8-82.8); PLATELET COUNT 159 K/MM3 (134-434); RDW 14.3 % (11.6-15.6); WHITE BLOOD COUNT 8.5 K/mm3 (4.0-10.0)
[2017-05-27] MEDS: levETIRAcetam 500 MG TABLET (FP) PO SCH ×2 (09:31→21:50)
[2017-05-27] MEDS: HEPARIN NA (PORCINE) 5,000 UNITS/ML 1ML VIAL SQ SCH ×2 (09:31→21:50)
[2017-05-27] MEDS: LOSARTAN POTASSIUM 50 MG TABLET (FP) PO SCH (09:32)
[2017-05-27] MEDS: NAPH,MB-DB/K PH,MBDB POWDER PACKET PO SCH ×2 (09:32→21:50)
[2017-05-27 09:34] LABS: ANION GAP 9 (8-16); CO2 26 mmol/L (21-32); CREATININE 0.8 mg/dL (0.55-1.02); GLUCOSE,RANDOM 118 mg/dL (74-106); PHOSPHOROUS 2.8 mg/dL (2.5-4.9)
--- NOTE | 2017-05-27 09:36 | PN ---
Progress Note, Physician Chief Complaint: seen and examined, no distress - Current Medication List Current Medications: Active Medications Donepezil HCl (Aricept -) 5 mg PO HS [facility] Heparin Sodium (Porcine) (Heparin -) 5,000 unit SQ BID [facility] Last Admin: 05/27/17 09:31 Dose: 5,000 unit Hydromorphone HCl (Dilaudid Injection -) 0.5 mg IVPB Q4H PRN PRN Reason: PAIN Last Admin: 05/26/17 16:41 Dose: 0.5 mg Levetiracetam (Keppra -) 750 mg PO BID [facility] Last Admin: 05/27/17 09:31 Dose: 750 mg Levothyroxine Sodium (Synthroid -) 75 mcg PO DAILY@0700 [facility] Last Admin: 05/27/17 06:39 Dose: 75 mcg Losartan Potassium (Cozaar -) 50 mg PO DAILY [facility] Last Admin: 05/27/17 09:32 Dose: 50 mg Potassium Phos/Sodium Phos (Phos-Nak Packet -) 1 packet PO BID [facility] Last Admin: 05/27/17 09:32 Dose: 1 packet - Objective Vital Signs: Vital Signs Temperature 99.1 F 05/27/17 06:00 Pulse Rate 104 H 05/27/17 06:00 Respiratory Rate 20 05/27/17 06:00 Blood Pressure 166/64 05/27/17 06:00 O2 Sat by Pulse Oximetry (%) 96 05/25/17 09:00 Constitutional: Yes: No Distress Eyes: Yes: Conjunctiva Clear Cardiovascular: Yes: Regular Rate and Rhythm Respiratory: Yes: CTA Bilaterally Gastrointestinal: Yes: Soft Edema: No Neurological: Yes: Alert, Oriented Labs: CBC, BMP 05/27/17 07:35 INR, PTT INR 1.01 (0.82-1.09) 05/22/17 07:45 Laboratory Tests 05/27/17 05/27/17 07:35 07:35 WBC 8.5 Hgb 9.7 L Plt Count 159 Sodium Pending Potassium Pending Carbon Dioxide Pending Anion Gap Pending BUN Pending Random Glucose Pending Calcium Pending Phosphorus Pending Problem List - Problems (1) Seizure Code(s): R56.9 - UNSPECIFIED CONVULSIONS (2) Thoracic spine fracture Code(s): S22.009A - UNSP FRACTURE OF UNSP THORACIC VERTEBRA, INIT FOR CLOS FX Qualifiers: Thoracic vertebra fracture level: T5 Fracture type: closed Fracture morphology: burst- stable Fracture healing: with routine healing (3) Abnormal ECG Code(s): R94.31 - ABNORMAL ELECTROCARDIOGRAM [ECG] [EKG] (4) Hypertension Code(s): I10 - ESSENTIAL (PRIMARY) HYPERTENSION Qualifiers: Hypertension type: essential hypertension Qualified Code(s): I10 - Essential (primary) hypertension Assessment/Plan Probable seizure resulting in fall and cervical and thoracic spine fractures s/ p surgical stabilization Perioperative cardiac risk stratification Chronic HTN Abnormal/Non-specific ECG REC: Post op course: -pt tolerated procedure well from a cardiac standpoint -slightly elevated troponin pre and post op, trend has remained mostly flat -elevated cardiac enzymes believed to be due to seizure and chronic valve dz -EKG did not show evidence of ischemia -echo preop showed low normal LV systolic function, mod to sev MR, mild AR/TR, mild Pulm htn HTN:at times mildly above goal -due to discomfort, agitation -Cont Cozaar, monitor BP DVT prophylaxis: -on SQ Heparin
[2017-05-27 09:41] LABS: FREE T4 1.15 ng/dl (0.76-1.46); THYROID STIMULATING HORMONE 2.62 uIU/ml (0.358-3.74)
--- NOTE | 2017-05-27 16:44 | PATH ---
Surgical Pathology Report Patient Name: LEONARD BO Med. Rec. #: [id number] /Age/Gender: 1940 (Age: 77) / F Account: [id number] [facility] Taken: 05/23/2017 Received: 05/26/2017 Reported: 05/27/2017 Physicians: Nikia Troy M.D. Specimen(s) Received EPIDURAL HEMATOMA T6 Clinical History Multilevel thoracic fracture and compression T3-T8 Final Diagnosis EPIDURAL HEMATOMA T6, EVACUATION: CLOTTED BLOOD AND BENIGN ADIPOSE TISSUE. Electronically Signed Daniel Mehta M.D. Gross Description Received in formalin labeled "epidural hematoma," is a 1.4 x 1.1 x 0.3 cm portion of holland brown blood clot. The specimen is submitted in toto in one cassette. 05/26/201705/26/2017
[2017-05-27] MEDS: oxyCODONE HCL 5 MG TABLET PO PRN (20:09)
[2017-05-27] MEDS: guaiFENesin 200 MG/10 ML 10 ML UNIT-DOSE CUPS PO PRN (20:09)
[2017-05-27] MEDS: DONEPEZIL HCL 5 MG TABLET (FP) PO SCH (21:50)
--- NOTE | 2017-05-27 22:09 | PN ---
Progress Note, Physician History of Present Illness: Pt febrile to 100 today - Current Medication List Current Medications: Active Medications Donepezil HCl (Aricept -) 5 mg PO HS [facility] Last Admin: 05/27/17 21:50 Dose: 5 mg Guaifenesin (Robitussin -) 10 ml PO Q6H PRN Last Admin: 05/27/17 20:09 Dose: 10 ml Heparin Sodium (Porcine) (Heparin -) 5,000 unit SQ BID [facility] Last Admin: 05/27/17 21:50 Dose: 5,000 unit Hydromorphone HCl (Dilaudid Injection -) 0.5 mg IVPB Q4H PRN PRN Reason: PAIN Last Admin: 05/26/17 16:41 Dose: 0.5 mg Levetiracetam (Keppra -) 750 mg PO BID [facility] Last Admin: 05/27/17 21:50 Dose: 750 mg Levothyroxine Sodium (Synthroid -) 75 mcg PO DAILY@0700 [facility] Last Admin: 05/27/17 06:39 Dose: 75 mcg Losartan Potassium (Cozaar -) 50 mg PO DAILY [facility] Last Admin: 05/27/17 09:32 Dose: 50 mg Oxycodone HCl (Roxicodone -) 10 mg PO Q6H PRN Last Admin: 05/27/17 20:09 Dose: 10 mg Potassium Phos/Sodium Phos (Phos-Nak Packet -) 1 packet PO BID [facility] Last Admin: 05/27/17 21:50 Dose: 1 packet - Objective Vital Signs: Vital Signs Temperature 99.1 F 05/27/17 15:00 Pulse Rate 103 H 05/27/17 15:00 Respiratory Rate 20 05/27/17 15:00 Blood Pressure 139/67 05/27/17 15:00 O2 Sat by Pulse Oximetry (%) 96 05/25/17 09:00 Constitutional: Yes: No Distress HENT: Yes: WNL Neck: Yes: WNL, Supple Cardiovascular: Yes: WNL, Regular Rate and Rhythm Respiratory: Yes: WNL, Regular, CTA Bilaterally Gastrointestinal: Yes: WNL, Normal Bowel Sounds, Soft Labs: CBC, BMP 05/27/17 07:35 05/27/17 07:35 INR, PTT INR 1.01 (0.82-1.09) 05/22/17 07:45 Problem List - Problems (1) Vertebral fracture Assessment/Plan: S/P thoracic lamnectomy(T4-T8) w/ fusion PT eval Drainage tube removed Code(s): [id number] - (2) Seizure Assessment/Plan: Cont keppra Code(s): R56.9 - UNSPECIFIED CONVULSIONS (3) Syncope Code(s): R55 - SYNCOPE AND COLLAPSE Qualifiers: Syncope type: unspecified Qualified Code(s): R55 - Syncope and collapse (4) Musculoskeletal pain Code(s): M79.1 - MYALGIA
[2017-05-28] MEDS: LEVOTHYROXINE NA 75 MCG TABLET (FP) PO SCH (06:14)
[2017-05-28 07:10] LABS: MCH 29.9 pg (25.7-33.7); MCHC 33.7 g/dl (32.0-36.0); MEAN CELL VOLUME 88.6 fl (80-96); MEAN PLT VOLUME 7.9 fl (7.5-11.1); PLATELET COUNT 196 K/MM3 (134-434); RDW 14.1 % (11.6-15.6); WHITE BLOOD COUNT 8.5 K/mm3 (4.0-10.0)
[2017-05-28 07:33] LABS: ALBUMIN 2.2 g/dl (3.4-5.0); ALK PHOS 87 U/L (45-117); ANION GAP 7 (8-16); BILIRUBIN,TOTAL 1.1 mg/dL (0.2-1.0); CALCIUM 7.6 mg/dL (8.5-10.1); CO2 27 mmol/L (21-32); CREATININE 0.9 mg/dL (0.55-1.02); GLUCOSE,RANDOM 98 mg/dL (74-106); SGOT/AST 52 U/L (15-37); SGPT/ALT 35 U/L (12-78); TOT PROT 5.5 g/dl (6.4-8.2)
--- NOTE | 2017-05-28 08:41 | PN ---
Progress Note, Physician Chief Complaint: febrile no acute distress - Current Medication List Current Medications: Active Medications Donepezil HCl (Aricept -) 5 mg PO HS [facility] Last Admin: 05/27/17 21:50 Dose: 5 mg Guaifenesin (Robitussin -) 10 ml PO Q6H PRN Last Admin: 05/27/17 20:09 Dose: 10 ml Heparin Sodium (Porcine) (Heparin -) 5,000 unit SQ BID [facility] Last Admin: 05/27/17 21:50 Dose: 5,000 unit Hydromorphone HCl (Dilaudid Injection -) 0.5 mg IVPB Q4H PRN PRN Reason: PAIN Last Admin: 05/26/17 16:41 Dose: 0.5 mg Levetiracetam (Keppra -) 750 mg PO BID [facility] Last Admin: 05/27/17 21:50 Dose: 750 mg Levothyroxine Sodium (Synthroid -) 75 mcg PO DAILY@0700 [facility] Last Admin: 05/28/17 06:14 Dose: 75 mcg Losartan Potassium (Cozaar -) 50 mg PO DAILY [facility] Last Admin: 05/27/17 09:32 Dose: 50 mg Oxycodone HCl (Roxicodone -) 10 mg PO Q6H PRN Last Admin: 05/27/17 20:09 Dose: 10 mg Potassium Phos/Sodium Phos (Phos-Nak Packet -) 1 packet PO BID [facility] Last Admin: 05/27/17 21:50 Dose: 1 packet - Objective Vital Signs: Vital Signs Temperature 99.2 F 05/28/17 06:29 Pulse Rate 97 H 05/28/17 06:29 Respiratory Rate 20 05/28/17 06:29 Blood Pressure 144/70 05/28/17 06:29 O2 Sat by Pulse Oximetry (%) 96 05/25/17 09:00 Constitutional: Yes: No Distress, Calm Eyes: Yes: Conjunctiva Clear Cardiovascular: Yes: Pulse Irregular Respiratory: Yes: CTA Bilaterally (no wheezing) Gastrointestinal: Yes: Soft (non-tender) Edema: No Neurological: Yes: Alert ...Motor Strength: WNL Labs: CBC, BMP 05/28/17 06:00 05/28/17 06:00 INR, PTT INR 1.01 (0.82-1.09) 05/22/17 07:45 - ....Imaging EKG: Pending Problem List - Problems (1) Seizure Code(s): R56.9 - UNSPECIFIED CONVULSIONS (2) Thoracic spine fracture Code(s): S22.009A - UNSP FRACTURE OF UNSP THORACIC VERTEBRA, INIT FOR CLOS FX Qualifiers: Thoracic vertebra fracture level: T5 Fracture type: closed Fracture morphology: burst- stable Fracture healing: with routine healing (3) Abnormal ECG Code(s): R94.31 - ABNORMAL ELECTROCARDIOGRAM [ECG] [EKG] (4) Hypertension Code(s): I10 - ESSENTIAL (PRIMARY) HYPERTENSION Qualifiers: Hypertension type: essential hypertension Qualified Code(s): I10 - Essential (primary) hypertension Assessment/Plan Assessment/Plan Probable seizure resulting in fall and cervical and thoracic spine fractures s/ p surgical stabilization Perioperative cardiac risk stratification Chronic HTN Abnormal/Non-specific ECG REC: Post op course: -pt tolerated procedure well from a cardiac standpoint -slightly elevated troponin pre and post op, trend has remained mostly flat -elevated cardiac enzymes believed to be due to seizure and chronic valve dz -EKG did not show evidence of ischemia -echo preop showed low normal LV systolic function, mod to sev MR, mild AR/TR, mild Pulm htn -Will repeat ECG today, irregular pulse on exam likely APCs. HTN:appears well controlled last 24 hours -Cont Cozaar, monitor BP DVT prophylaxis: -on SQ Heparin Low grade fever: -Work up as per PMD
[2017-05-28] MEDS: LOSARTAN POTASSIUM 50 MG TABLET (FP) PO SCH (09:28)
[2017-05-28] MEDS: levETIRAcetam 500 MG TABLET (FP) PO SCH ×2 (09:28→21:14)
[2017-05-28] MEDS: NAPH,MB-DB/K PH,MBDB POWDER PACKET PO SCH ×2 (09:28→21:17)
[2017-05-28 11:38] LABS: PLATELET ESTIMATE ADEQUATE (NORMAL)
[2017-05-28] MEDS: HEPARIN NA (PORCINE) 5,000 UNITS/ML 1ML VIAL SQ SCH ×2 (14:08→21:17)
--- NOTE | 2017-05-28 14:34 | EKG ---
Test Reason : Blood Pressure : / mmHG Vent. Rate : 097 BPM Atrial Rate : 097 BPM P-R Int : 122 ms QRS Dur : 094 ms QT Int : 360 ms P-R-T Axes : 033 -23 143 degrees QTc Int : 457 ms SINUS RHYTHM WITH OCCASIONAL PREMATURE VENTRICULAR COMPLEXES AND FUSION COMPLEXES ABNORMAL ECG WHEN COMPARED WITH ECG OF 23-MAY-2017 08:31, FUSION COMPLEXES ARE NOW PRESENT PREMATURE VENTRICULAR COMPLEXES ARE NOW PRESENT ST NO LONGER DEPRESSED IN ANTERIOR LEADS PATIENT SITTING UP IN BED DURING EKG Confirmed by SAM AMADOR MD ([id number]) on 05/28/2017 2:34:33 PM Referred By: Faustino DAVENPORT Confirmed By:SAM AMADOR MD
[2017-05-28] MEDS: oxyCODONE HCL 5 MG TABLET PO PRN (21:15)
[2017-05-28] MEDS: guaiFENesin 200 MG/10 ML 10 ML UNIT-DOSE CUPS PO PRN (21:17)
[2017-05-28] MEDS: DONEPEZIL HCL 5 MG TABLET (FP) PO SCH (21:18)
--- NOTE | 2017-05-28 22:14 | PN ---
Progress Note, Physician History of Present Illness: Pt febrile to 100.1 today - Current Medication List Current Medications: Active Medications Donepezil HCl (Aricept -) 5 mg PO HS [facility] Last Admin: 05/28/17 21:18 Dose: 5 mg Guaifenesin (Robitussin -) 10 ml PO Q6H PRN Last Admin: 05/28/17 21:17 Dose: 10 ml Heparin Sodium (Porcine) (Heparin -) 5,000 unit SQ BID [facility] Last Admin: 05/28/17 21:17 Dose: 5,000 unit Hydromorphone HCl (Dilaudid Injection -) 0.5 mg IVPB Q4H PRN PRN Reason: PAIN Last Admin: 05/26/17 16:41 Dose: 0.5 mg Levetiracetam (Keppra -) 750 mg PO BID [facility] Last Admin: 05/28/17 21:14 Dose: 750 mg Levothyroxine Sodium (Synthroid -) 75 mcg PO DAILY@0700 [facility] Last Admin: 05/28/17 06:14 Dose: 75 mcg Losartan Potassium (Cozaar -) 50 mg PO DAILY [facility] Last Admin: 05/28/17 09:28 Dose: 50 mg Oxycodone HCl (Roxicodone -) 10 mg PO Q6H PRN Last Admin: 05/28/17 21:15 Dose: 10 mg Potassium Phos/Sodium Phos (Phos-Nak Packet -) 1 packet PO BID [facility] Last Admin: 05/28/17 21:17 Dose: 1 packet - Objective Vital Signs: Vital Signs Temperature 98.4 F 05/28/17 18:00 Pulse Rate 98 H 05/28/17 18:00 Respiratory Rate 18 05/28/17 18:00 Blood Pressure 120/72 05/28/17 18:00 O2 Sat by Pulse Oximetry (%) 96 05/25/17 09:00 Constitutional: Yes: No Distress Cardiovascular: Yes: WNL, Regular Rate and Rhythm Respiratory: Yes: WNL, Regular, CTA Bilaterally Gastrointestinal: Yes: WNL, Normal Bowel Sounds, Soft Labs: CBC, BMP 05/28/17 06:00 05/28/17 06:00 INR, PTT INR 1.01 (0.82-1.09) 05/22/17 07:45 Problem List - Problems (1) Fever Assessment/Plan: ?Postop fever WBC has been normal Will check CXR/urine ID consult Repeat BC in am Code(s): R50.9 - FEVER, UNSPECIFIED (2) Vertebral fracture Assessment/Plan: S/P thoracic lamnectomy(T4-T8) w/ fusion Cont PT ?DC planning to STR DC dilaudid Cont oxycodone Code(s): [id number] - (3) Hypertension Assessment/Plan: BP stable Cont losartan Code(s): I10 - ESSENTIAL (PRIMARY) HYPERTENSION Qualifiers: Hypertension type: essential hypertension Qualified Code(s): I10 - Essential (primary) hypertension (4) Seizure Assessment/Plan: Cont keppra Code(s): R56.9 - UNSPECIFIED CONVULSIONS (5) Troponin I above reference range Assessment/Plan: Repeat levels in am Due to demand ischemia Code(s): R74.8 - ABNORMAL LEVELS OF OTHER SERUM ENZYMES (6) Syncope Code(s): R55 - SYNCOPE AND COLLAPSE Qualifiers: Syncope type: unspecified Qualified Code(s): R55 - Syncope and collapse (7) Musculoskeletal pain Code(s): M79.1 - MYALGIA
[2017-05-29] MEDS: LEVOTHYROXINE NA 75 MCG TABLET (FP) PO SCH (06:23)
[2017-05-29 07:48] LABS: MCH 29.5 pg (25.7-33.7); MCHC 32.7 g/dl (32.0-36.0); MEAN CELL VOLUME 90.4 fl (80-96); MEAN PLT VOLUME 8.5 fl (7.5-11.1); PLATELET COUNT 265 K/MM3 (134-434); RDW 14.4 % (11.6-15.6); WHITE BLOOD COUNT 12.3 K/mm3 (4.0-10.0)
[2017-05-29 08:44] LABS: ALBUMIN 2.6 g/dl (3.4-5.0); ALK PHOS 113 U/L (45-117); ANION GAP 9 (8-16); BILIRUBIN,TOTAL 1.1 mg/dL (0.2-1.0); CALCIUM 8.3 mg/dL (8.5-10.1); CO2 27 mmol/L (21-32); CREATININE 1.1 mg/dL (0.55-1.02); GLUCOSE,RANDOM 112 mg/dL (74-106); SGPT/ALT 48 U/L (12-78); TOT PROT 6.4 g/dl (6.4-8.2)
[2017-05-29 08:46] LABS: SGOT/AST 71 U/L (15-37)
[2017-05-29 09:05] LABS: HYPOCHROMIA FEW; METAMYELOCYTE 3 % (0-2); PLATELET ESTIMATE ADEQUATE (NORMAL); POLYCHROMASIA FEW
[2017-05-29 09:31] LABS: URINE APPEARANCE CLEAR; URINE BILIRUBIN NEGATIVE (NEGATIVE); URINE BLOOD NEGATIVE (NEGATIVE); URINE COLOR DKYELLOW; URINE GLUCOSE (UA) NEGATIVE (NEGATIVE); URINE KETONE NEGATIVE (NEGATIVE); URINE NITRITE NEGATIVE (NEGATIVE); URINE PROTEIN NEGATIVE (NEGATIVE); URINE UROBILINOGEN 4.0 E.U/dl mg/dL (0.2-1.0)
[2017-05-29 09:32] LABS: URINE LEUK ESTERASE 1+ (NEGATIVE)
[2017-05-29 09:33] LABS: URINE MUCUS RARE; URINE RBC <1 /hpf (0-3); URINE WBC 21 /hpf (3-5)
[2017-05-29] MEDS: levETIRAcetam 500 MG TABLET (FP) PO SCH ×2 (10:37→21:29)
[2017-05-29] MEDS: LOSARTAN POTASSIUM 50 MG TABLET (FP) PO SCH (10:37)
[2017-05-29] MEDS: NAPH,MB-DB/K PH,MBDB POWDER PACKET PO SCH ×2 (10:37→21:31)
[2017-05-29] MEDS: HEPARIN NA (PORCINE) 5,000 UNITS/ML 1ML VIAL SQ SCH ×2 (10:37→21:30)
--- NOTE | 2017-05-29 11:21 | PN ---
Progress Note, Physician History of Present Illness: seen and examined today in nad. just came back from [facility]. coughing with sputum production. no overnight events. no new complaints. - Current Medication List Current Medications: Active Medications Donepezil HCl (Aricept -) 5 mg PO HS [facility] Last Admin: 05/28/17 21:18 Dose: 5 mg Guaifenesin (Robitussin -) 10 ml PO Q6H PRN Last Admin: 05/28/17 21:17 Dose: 10 ml Heparin Sodium (Porcine) (Heparin -) 5,000 unit SQ BID [facility] Last Admin: 05/29/17 10:37 Dose: 5,000 unit Levetiracetam (Keppra -) 750 mg PO BID [facility] Last Admin: 05/29/17 10:37 Dose: 750 mg Levothyroxine Sodium (Synthroid -) 75 mcg PO DAILY@0700 [facility] Last Admin: 05/29/17 06:23 Dose: 75 mcg Losartan Potassium (Cozaar -) 50 mg PO DAILY [facility] Last Admin: 05/29/17 10:37 Dose: 50 mg Oxycodone HCl (Roxicodone -) 10 mg PO Q6H PRN Last Admin: 05/28/17 21:15 Dose: 10 mg Potassium Phos/Sodium Phos (Phos-Nak Packet -) 1 packet PO BID [facility] Last Admin: 05/29/17 10:37 Dose: 1 packet - Objective Vital Signs: Vital Signs Temperature 99.4 F 05/29/17 09:00 Pulse Rate 77 05/29/17 09:00 Respiratory Rate 20 05/29/17 09:00 Blood Pressure 105/49 05/29/17 09:00 O2 Sat by Pulse Oximetry (%) 97 05/28/17 21:00 Constitutional: Yes: No Distress, Calm Eyes: Yes: Conjunctiva Clear, EOM Intact, PERRL HENT: Yes: Atraumatic, Normocephalic Neck: Yes: Supple, Trachea Midline Cardiovascular: Yes: Regular Rate and Rhythm, S1, S2. No: Bradycardia, Tachycardia, Pulse Irregular, Bruit, JVD, Gallop, Murmur, Rub, S3, S4, Varicosities Respiratory: Yes: Regular, Cough. No: Rales, Rhonchi, Wheezes Gastrointestinal: Yes: Normal Bowel Sounds, Soft. No: Distention, Tenderness Edema: No Peripheral Pulses WNL: Yes Peripheral Pulses: Left Doralis Pedis: 2+, Right Dorsalis Pedis: 2+ Neurological: Yes: Alert, Oriented Psychiatric: Yes: Alert, Oriented Labs: CBC, BMP 05/29/17 06:00 05/29/17 06:00 INR, PTT INR 1.01 (0.82-1.09) 05/22/17 07:45 - ....Imaging Chest X-ray: Report Reviewed, Image Reviewed EKG: Report Reviewed, Image Reviewed Other: Report Reviewed, Image Reviewed Assessment/Plan Probable seizure resulting in fall and cervical and thoracic spine fractures s/ p surgical stabilization Perioperative cardiac risk stratification Chronic HTN Abnormal/Non-specific ECG REC: Post op course: -pt tolerated procedure well from a cardiac standpoint -elevated cardiac enzymes believed to be due to seizure and chronic valve dz -repeat EKG yesterday showed NSR with PVCs, likely accounting for the irregular pulse heard on exam yesterday -echo preop showed low normal LV systolic function, mod to sev MR, mild AR/TR, mild Pulm htn HTN:adequately controlled -Cont Losartan 50mg daily Cough, productive sputum/Low grade fever: -Work up as per PMD
[2017-05-29] MEDS: oxyCODONE HCL 5 MG TABLET PO PRN (11:56)
--- NOTE | 2017-05-29 12:14 | PN ---
Teaching Attending Note Name of Resident: Penny Bennett ATTENDING PHYSICIAN STATEMENT I saw and evaluated the patient. I reviewed the resident's note and discussed the case with the resident. I agree with the resident's findings and plan as documented. SUBJECTIVE:ID Post op day 6 spinal surgery thoracic and cervical with post op fever however 4 days latter She is alert no distress couphing no other complaints Not SOB OBJECTIVE: ASSESSMENT AND PLAN: Selected Entries 05/29/17 09:00 Temperature 99.4 F Pulse Rate 77 Respiratory 20 Rate Blood Pressure 105/49 Basilar rales Cor S1 S2 RR Abd Ventral hernia reducible not painful Ext NO edema Microbiology 05/22/17 13:00 Urine - Urine Clean Catch Urine Culture - Final NO GROWTH OBTAINED Laboratory Tests 05/29/17 05/29/17 05/29/17 06:00 06:00 07:00 WBC 12.3 H D Hgb 10.1 L Hct 31.0 L Plt Count 265 D Neutrophils % 41.0 L D Lymphocytes % 28.0 D Monocytes % 16.0 H Eosinophils % 8.0 H Band Neutrophils 2.0 Myelocytes 2 BUN 15 Ur Leukocyte Esterase 1+ H Urine RBC <1 Urine WBC 21 Assessment Post fever with high risk for infection both UTI as well as Pneumonia No clear infiltrate on portable chest xray. Plan Blood cultures x 2 Urine c/s Empiric therapy with Ceftriaxone Vancomycin 1 gr 1 dose Speech and swallowing griselda Mooney MD
[2017-05-29] MEDS ORDERED: VANCOMYCIN 1 GRAM (PRE-DOCKED) 250 ML IVPB ONE (12:45)
--- NOTE | 2017-05-29 13:38 | CONSULT ---
Consult Consult Specialty:: ID Referred by:: [place] Reason for Consultation:: post-op fever - History of Present Illness History of Present Illness: 77yo woman who PMH of seizure disorder, HTN, hypothyroidism, and dementia who is POD6 from T3-8 stabilization for mechanical fall likely /2 to seizure. The patient, who lives with her daugther, had an unwitnessed fall down a flight of stairs (9steps) on 05/22. She was found to have cervical and thoracic fractures, adn underwent surgical stabilization of the thoracic fractures on 05/23. On POD4, she had a fever with a Tmax of 100.8 and subsequent mild leukocytosis. For the past day, the patient has had increased cough and sputum production. She denies any SOB, chest pain or palpitation. Denies any current fever, chills, nausea/ vomiting. No dysuria, frequency or hesitancy. Denies any abdominal pain. 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, Dementia, Seizure Cardio/Vascular: Yes: HTN Gastrointestinal: No: Other Endocrine: Yes: Hypothyroidism - Past Surgical History Past Surgical History: Yes: Hernia Repair (ventral hernia repaired with mesh) - Alcohol/Substance Use Hx Alcohol Use: No - Smoking History Smoking history: Never smoked Have you smoked in the past 12 months: No Aproximately how many cigarettes per day: 0 - Social History Usual Living Arrangement: With Child ADL: Independent History of Recent Travel: No Home Medications - Allergies Allergies/Adverse Reactions: Allergies Allergy/AdvReac Type Severity Reaction Status Date / Time Penicillins Allergy Verified 05/22/17 06:32 - Home Medications Home Medications: Ambulatory Orders Levetiracetam [Keppra] 1,500 mg PO BID 11/25/13 Levothyroxine [Synthroid -] 75 mcg PO DAILY 11/25/13 Losartan Potassium 50 mg PO DAILY 11/25/13 Review of Systems - Review of Systems Constitutional: denies: Chills, Fever Cardiovascular: denies: Chest Pain, Palpitations, Shortness of Breath Respiratory: reports: Cough Gastrointestinal: denies: No Symptoms Genitourinary: denies: No Symptoms Physical Exam Vital Signs: Vital Signs Temperature 99.4 F 05/29/17 09:00 Pulse Rate 77 05/29/17 09:00 Respiratory Rate 20 05/29/17 09:00 Blood Pressure 105/49 05/29/17 09:00 O2 Sat by Pulse Oximetry (%) 97 05/28/17 21:00 Constitutional: Yes: No Distress, Calm Eyes: Yes: Conjunctiva Clear. No: Sclera Icterus HENT: Yes: WNL Neck: Yes: Supple. No: Lymphadenopathy Cardiovascular: Yes: Regular Rate and Rhythm, S1, S2. No: Gallop, Murmur, Rub Respiratory: Yes: Rales (bibasilar) Gastrointestinal: Yes: Soft, Hernia (large ventral hernia, partially reducible due to patient's discomfort/pain), Other. No: Tenderness Edema: No (b/l) Integumentary: Yes: Bruising (R mandibular ecchymosis, R knee abrasions) Neurological: Yes: Alert, Oriented Labs: CBC, BMP 05/29/17 06:00 05/29/17 06:00 Urine Test Results Urine Color Dkyellow 05/29/17 07:00 Urine Appearance Clear 05/29/17 07:00 Urine pH 5.0 (5.0-8.0) 05/29/17 07:00 Ur Specific [place] <= 1.005 (1.005-1.025) 05/22/17 08:03 Urine Protein Negative (NEGATIVE) 05/29/17 07:00 Urine Glucose (UA) Negative (NEGATIVE) 05/29/17 07:00 Urine Ketones Negative (NEGATIVE) 05/29/17 07:00 Urine Blood Negative (NEGATIVE) 05/29/17 07:00 Urine Nitrite Negative (NEGATIVE) 05/29/17 07:00 Urine Bilirubin Negative (NEGATIVE) 05/29/17 07:00 Ur Leukocyte Esterase 1+ (NEGATIVE) H 05/29/17 07:00 Urine RBC <1 /hpf (0-3) 05/29/17 07:00 Urine WBC 21 /hpf (3-5) 05/29/17 07:00 Ur Epithelial Cells Rare /hpf (FEW) 05/29/17 07:00 Urine Mucus Rare 05/29/17 07:00 Microbiology 05/22/17 13:00 Urine - Urine Clean Catch Urine Culture - Final NO GROWTH OBTAINED Imaging - Results Chest X-ray: Pending (Shallow inspiration. Limited evaluation of the lung parenchyma in the left retrocardiac region. Suggestion of the left lower lobe atelectatic changes. No e/o CHF, pneumothorax. No airspace opacities are seen in the left upper lung zone or right lung.) Assessment/Plan 77yo [place] woman with seizure disorder that likely resulted in recent fall and cervical/thoracic fx s/p surgical repair (05/23) who was found to have post-op fever on POD4 that has a high risk for an infectious etiology with differential including UTI and PNA. Although the patient denies any urinary symptoms, UA today revealed pyuria (WBC 21) and 1+LE with urine culture pending. She has been having increased productive coughing x1d with portable chest radiograph revealing atelectic changes in LLL. In addition, the patient seems to have increased coughing after drinking liquids, and we suggest PHOSPHORIC ACID SUPERVISOR bedside evaluation. #post operative fever -blood culture pending -urine culture (05/29) pending -Ceftriaxone 1gm IVPB daily -Vancomycin 1gm IVBP daily x 1dose -appreciate PHOSPHORIC ACID SUPERVISOR evaluation for aspiration risk d/w Dr. Jesica Bennett MD PGY-1 Visit type - Emergency Visit Emergency Visit: No - New Patient This patient is new to me today: Yes Date on this admission: 05/29/17 - Critical Care Critical Care patient: No
[2017-05-29] MEDS ORDERED: DEXTROSE 5%-WATER - 50 ML IVPB ONE (14:28)
[2017-05-29] MEDS ORDERED: cefTRIAXone SODIUM 1 GM VIAL ONE (14:28)
[2017-05-29] MEDS: CEFTRIAXONE 1 GM in DEXTROSE 5%-WATER - 50 ML IVPB SCH (14:34)
--- NOTE | 2017-05-29 15:05 | CONSULT ---
Admitting History and Physical - Primary Care Physician PCP: Carlie Wood - Admission Chief Complaint: Cough while drinking History of Present Illness: Per EMR, pt with hx of HTN, hypothyroidism, seizure d/o, dementia - Alzheimers, cerebral dysfunction admitted s/p fall with vertebral, spinal, cervical fx, R jaw ecchymosis s/p thoracic laminectomy with fusion, posterior lumbar decompression and instrumentation of the T4-T8 spine (05/23). A C-Collar is currently in place. Pt reported to be coughing while drinking. This is my first consult with this pt. 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 Limited evaluation of the lung parenchyma in the left retrocardiac region. Suggestion of the left lower lobe atelectatic changes. No e/o CHF, pneumothorax. No airspace opacities are seen in the left upper lung zone or right lung.) - General Mental Status: Awake and Alert (hospital only), Able to Follow Commands Attention: Intact Ability to Follow Directions: Fair Head/Neck Control: Needs Assist (Neck brace) - Hearing Hearing: Normal Speech Evaluation - Communication Primary Language: RUSSIAN Communication: Yes: Within Normal Limits Oral Expression Ability: Yes: No Impairment - Speech Production Able to Make Needs Known: Yes: WNL Intelligibility: Yes: WNL - Speech Characteristics Voice Loudness: Normal Voice Pitch: Yes: Normal Voice Phonatory-based Quality: Yes: Normal Nasal Resonance: Normal Articulation: Yes: Precise Rate of Speech: Intact - Language/Auditory Comprehension Follows: Yes: 1 Stage Simple Commands - Language/Verbal Expression Able to Respond to Simple Queries: Yes: WNL - Swallow Evaluation/Bedside Assessment Current Nutritional Intake: Regular, Thin Liquids Oral Secretions: Yes: WFL Dentition: Yes: Adequate Facial Symmetry at Rest: Symmetrical Facial Symmetry on Retraction: Symmetrical Sensation: Normal Pucker Lips: Normal Smile: Normal Lingual Movement: Normal, Symmetric Lingual Speed of Movement: Normal Lingual Movement Characteristics: Normal Laryngeal Elevation: WFL Laryngeal Movement: Able to Palpate Bolus Size: WFL Labial Seal: WFL Oral Prep Time: WFL A-P Transit: WFL Pocketing: None Timing of Swallow: WFL Coughing/Throat Clear: No Change in Voice: No Recommendations - Speech Evaluation, Impression/Plan Impression: Pt is verbal, forgetful,speech production intact. Nursing reports intermittent coughing with thin liquid from a straw. I did not observe this, with rapid drinking of juice from a straw, 3 ounce water test, without changes in vocal quality or cough elicited.Swallow reflex appears brisk and timely. Cough noted by nursing possibly related to taking whole pills with liquid? - Dysphagia Impressions/Plan Dysphagia Impressions: Ongoing Evaluation *Silent aspiration: cannot be R/O at bedside Recommendations: Other (observe for cough with liquid, with or without medication. If cough persists with meds, trial of crushing meds, with applesauce , followed by water. If with liquids alone, may need to downgrade to nectar and assess with mbs.) - Recommendations Diet Consistency: Regular Medication Administration: Whole with water Liquids: Thin Liquids
[2017-05-29] MEDS: guaiFENesin 200 MG/10 ML 10 ML UNIT-DOSE CUPS PO PRN (20:20)
[2017-05-29] MEDS ORDERED: ACETAMINOPHEN 325 MG TABLET (FP) ONE (21:19)
[2017-05-29] MEDS: DONEPEZIL HCL 5 MG TABLET (FP) PO SCH (21:30)
--- NOTE | 2017-05-29 23:44 | PN ---
Progress Note, Physician History of Present Illness: Pt still w/ low grade temp - Current Medication List Current Medications: Active Medications Acetaminophen (Tylenol -) 650 mg PO Q6H PRN PRN Reason: FEVER OR PAIN Donepezil HCl (Aricept -) 5 mg PO HS [facility] Last Admin: 05/29/17 21:30 Dose: 5 mg Guaifenesin (Robitussin -) 10 ml PO Q6H PRN Last Admin: 05/29/17 20:20 Dose: 10 ml Heparin Sodium (Porcine) (Heparin -) 5,000 unit SQ BID [facility] Last Admin: 05/29/17 21:30 Dose: 5,000 unit Ceftriaxone Sodium 1 gm/ (Dextrose) 50 mls @ 100 mls/hr IVPB DAILY [facility] Last Admin: 05/29/17 14:34 Dose: 100 mls/hr Levetiracetam (Keppra -) 750 mg PO BID [facility] Last Admin: 05/29/17 21:29 Dose: 750 mg Levothyroxine Sodium (Synthroid -) 75 mcg PO DAILY@0700 [facility] Last Admin: 05/29/17 06:23 Dose: 75 mcg Losartan Potassium (Cozaar -) 50 mg PO DAILY [facility] Last Admin: 05/29/17 10:37 Dose: 50 mg Oxycodone HCl (Roxicodone -) 10 mg PO Q6H PRN Last Admin: 05/29/17 11:56 Dose: 10 mg Potassium Phos/Sodium Phos (Phos-Nak Packet -) 1 packet PO BID [facility] Last Admin: 05/29/17 21:31 Dose: 1 packet - Objective Vital Signs: Vital Signs Temperature 99.6 F 05/29/17 18:00 Pulse Rate 87 05/29/17 18:00 Respiratory Rate 20 05/29/17 18:00 Blood Pressure 134/59 05/29/17 18:00 O2 Sat by Pulse Oximetry (%) 95 05/29/17 15:04 Cardiovascular: Yes: WNL, Regular Rate and Rhythm Respiratory: Yes: WNL, Regular, CTA Bilaterally Gastrointestinal: Yes: WNL, Normal Bowel Sounds, Soft Labs: CBC, BMP 05/29/17 06:00 05/29/17 06:00 INR, PTT INR 1.01 (0.82-1.09) 05/22/17 07:45 Problem List - Problems (1) Fever Assessment/Plan: ?Postop fever Follow WBC ID consult Follow cultures Code(s): R50.9 - FEVER, UNSPECIFIED (2) Vertebral fracture Assessment/Plan: S/P thoracic lamnectomy(T4-T8) w/ fusion As per surgery Code(s): [id number] - (3) Hypertension Assessment/Plan: BP stable Cont losartan Code(s): I10 - ESSENTIAL (PRIMARY) HYPERTENSION Qualifiers: Hypertension type: essential hypertension Qualified Code(s): I10 - Essential (primary) hypertension (4) Seizure Assessment/Plan: Cont keppra Code(s): R56.9 - UNSPECIFIED CONVULSIONS (5) Troponin I above reference range Assessment/Plan: Due to demand ischemia Code(s): R74.8 - ABNORMAL LEVELS OF OTHER SERUM ENZYMES (6) Syncope Code(s): R55 - SYNCOPE AND COLLAPSE Qualifiers: Syncope type: unspecified Qualified Code(s): R55 - Syncope and collapse (7) Musculoskeletal pain Code(s): M79.1 - MYALGIA (8) Dementia Assessment/Plan: Cont aricept Code(s): F03.90 - UNSPECIFIED DEMENTIA WITHOUT BEHAVIORAL DISTURBANCE (9) Hypothyroidism Assessment/Plan: Cont levothyroxine Code(s): E03.9 - HYPOTHYROIDISM, UNSPECIFIED
[2017-05-30] MEDS: LEVOTHYROXINE NA 75 MCG TABLET (FP) PO SCH (06:11)
--- NOTE | 2017-05-30 08:05 | PN ---
Progress Note, Physician Chief Complaint: ID Post op 6 NAD Temp 99.5 Started on antibiotics yesterday post op fever - Current Medication List Current Medications: Active Medications Acetaminophen (Tylenol -) 650 mg PO Q6H PRN PRN Reason: FEVER OR PAIN Donepezil HCl (Aricept -) 5 mg PO HS [facility] Last Admin: 05/29/17 21:30 Dose: 5 mg Guaifenesin (Robitussin -) 10 ml PO Q6H PRN Last Admin: 05/29/17 20:20 Dose: 10 ml Heparin Sodium (Porcine) (Heparin -) 5,000 unit SQ BID [facility] Last Admin: 05/29/17 21:30 Dose: 5,000 unit Ceftriaxone Sodium 1 gm/ (Dextrose) 50 mls @ 100 mls/hr IVPB DAILY [facility] Last Admin: 05/29/17 14:34 Dose: 100 mls/hr Levetiracetam (Keppra -) 750 mg PO BID [facility] Last Admin: 05/29/17 21:29 Dose: 750 mg Levothyroxine Sodium (Synthroid -) 75 mcg PO DAILY@0700 [facility] Last Admin: 05/30/17 06:11 Dose: 75 mcg Losartan Potassium (Cozaar -) 50 mg PO DAILY [facility] Last Admin: 05/29/17 10:37 Dose: 50 mg Oxycodone HCl (Roxicodone -) 10 mg PO Q6H PRN Last Admin: 05/29/17 11:56 Dose: 10 mg Potassium Phos/Sodium Phos (Phos-Nak Packet -) 1 packet PO BID [facility] Last Admin: 05/29/17 21:31 Dose: 1 packet - Objective Vital Signs: Vital Signs Temperature 99.5 F 05/30/17 06:00 Pulse Rate 84 05/30/17 02:00 Respiratory Rate 18 05/30/17 02:00 Blood Pressure 134/59 05/29/17 22:00 O2 Sat by Pulse Oximetry (%) 96 05/29/17 21:00 Constitutional: Yes: No Distress HENT: Yes: WNL, Atraumatic Neck: Yes: WNL, Supple Cardiovascular: Yes: Regular Rate and Rhythm, S1, S2. No: Murmur Respiratory: Yes: WNL, Regular, CTA Bilaterally, Rales Gastrointestinal: Yes: WNL, Normal Bowel Sounds, Soft. No: Tenderness, Tenderness, Epigastrium Edema: No Labs: CBC, BMP 05/29/17 06:00 05/29/17 06:00 INR, PTT INR 1.01 (0.82-1.09) 05/22/17 07:45 Assessment/Plan Microbiology Laboratory Tests 05/29/17 05/29/17 05/29/17 06:00 06:00 07:00 WBC 12.3 H D Hgb 10.1 L Hct 31.0 L Plt Count 265 D Neutrophils % 41.0 L D Lymphocytes % 28.0 D Monocytes % 16.0 H Eosinophils % 8.0 H Band Neutrophils 2.0 BUN 15 Creat Clearance w eGFR 48.16 Ur Leukocyte Esterase 1+ H Urine RBC <1 Urine WBC 21 Assesment Post op fever days latter ? source Plan Empiric antibiotic pending c/s IF fevers persist would stop antibiotic as next step Only low grade at this time Jesica KEYS
[2017-05-30] MEDS ORDERED: cefTRIAXone SODIUM 1 GM VIAL ONE (10:35)
[2017-05-30] MEDS ORDERED: DEXTROSE 5%-WATER - 50 ML IVPB ONE (10:35)
[2017-05-30] MEDS: HEPARIN NA (PORCINE) 5,000 UNITS/ML 1ML VIAL SQ SCH ×2 (10:44→21:51)
[2017-05-30] MEDS: LOSARTAN POTASSIUM 50 MG TABLET (FP) PO SCH (10:45)
[2017-05-30] MEDS: CEFTRIAXONE 1 GM in DEXTROSE 5%-WATER - 50 ML IVPB SCH (10:45)
[2017-05-30] MEDS: NAPH,MB-DB/K PH,MBDB POWDER PACKET PO SCH ×2 (10:45→21:51)
[2017-05-30] MEDS: levETIRAcetam 500 MG TABLET (FP) PO SCH ×2 (10:45→21:50)
--- NOTE | 2017-05-30 12:14 | PN ---
Progress Note, [employer] - Note Progress Note: Selected Entries 05/29/17 05/29/17 05/29/17 02:00 05:31 06:32 Breakfast Diet Tolerated Supper Temperature 98.9 F 97.9 F 99.5 F 05/29/17 05/29/17 05/29/17 09:00 12:21 13:00 Breakfast 75% Diet Tolerated Well Supper Temperature 99.4 F 98.6 F 05/29/17 05/29/17 05/30/17 18:00 22:00 02:00 Breakfast Diet Tolerated Well Supper 75% Temperature 99.6 F 99.6 F 99.4 F 05/30/17 05/30/17 06:00 11:23 Breakfast 75% Diet Tolerated Well Supper Temperature 99.5 F Laboratory Tests 05/28/17 05/29/17 06:00 06:00 WBC 8.5 12.3 H D CXR noted. No signs of dysphagia reported or observed. Continue to monitor for swallowing difficulty.
[2017-05-30] MEDS: guaiFENesin 200 MG/10 ML 10 ML UNIT-DOSE CUPS PO PRN (20:35)
[2017-05-30] MEDS: DONEPEZIL HCL 5 MG TABLET (FP) PO SCH (21:51)
--- NOTE | 2017-05-30 23:05 | PN ---
Progress Note, Physician History of Present Illness: Pt w/ a dry nonproductive cough - Current Medication List Current Medications: Active Medications Acetaminophen (Tylenol -) 650 mg PO Q6H PRN PRN Reason: FEVER OR PAIN Donepezil HCl (Aricept -) 5 mg PO HS [facility] Last Admin: 05/30/17 21:51 Dose: 5 mg Guaifenesin (Robitussin -) 10 ml PO Q6H PRN Last Admin: 05/30/17 20:35 Dose: 10 ml Heparin Sodium (Porcine) (Heparin -) 5,000 unit SQ BID [facility] Last Admin: 05/30/17 21:51 Dose: 5,000 unit Ceftriaxone Sodium 1 gm/ (Dextrose) 50 mls @ 100 mls/hr IVPB DAILY [facility] Last Admin: 05/30/17 10:45 Dose: 100 mls/hr Levetiracetam (Keppra -) 750 mg PO BID [facility] Last Admin: 05/30/17 21:50 Dose: 750 mg Levothyroxine Sodium (Synthroid -) 75 mcg PO DAILY@0700 [facility] Last Admin: 05/30/17 06:11 Dose: 75 mcg Losartan Potassium (Cozaar -) 50 mg PO DAILY [facility] Last Admin: 05/30/17 10:45 Dose: 50 mg Potassium Phos/Sodium Phos (Phos-Nak Packet -) 1 packet PO BID [facility] Last Admin: 05/30/17 21:51 Dose: 1 packet - Objective Vital Signs: Vital Signs Temperature 98.4 F 05/30/17 18:35 Pulse Rate 88 05/30/17 18:35 Respiratory Rate 18 05/30/17 18:35 Blood Pressure 137/50 05/30/17 18:35 O2 Sat by Pulse Oximetry (%) 96 05/29/17 21:00 Cardiovascular: Yes: WNL, Regular Rate and Rhythm Respiratory: Yes: WNL, Regular, CTA Bilaterally Gastrointestinal: Yes: WNL, Normal Bowel Sounds, Soft Labs: CBC, BMP 05/29/17 06:00 05/29/17 06:00 INR, PTT INR 1.01 (0.82-1.09) 05/22/17 07:45 Problem List - Problems (1) Fever Code(s): R50.9 - FEVER, UNSPECIFIED (2) Vertebral fracture Code(s): NAL0655 - (3) Hypertension Code(s): I10 - ESSENTIAL (PRIMARY) HYPERTENSION Qualifiers: Hypertension type: essential hypertension Qualified Code(s): I10 - Essential (primary) hypertension (4) Seizure Code(s): R56.9 - UNSPECIFIED CONVULSIONS (5) Troponin I above reference range Code(s): R74.8 - ABNORMAL LEVELS OF OTHER SERUM ENZYMES (6) Syncope Code(s): R55 - SYNCOPE AND COLLAPSE Qualifiers: Syncope type: unspecified Qualified Code(s): R55 - Syncope and collapse (7) Musculoskeletal pain Code(s): M79.1 - MYALGIA
[2017-05-31] MEDS: LEVOTHYROXINE NA 75 MCG TABLET (FP) PO SCH (06:08)
[2017-05-31 08:05] LABS: ALBUMIN 2.5 g/dl (3.4-5.0); ANION GAP 9 (8-16); CALCIUM 8.4 mg/dL (8.5-10.1); CO2 28 mmol/L (21-32); GLUCOSE,RANDOM 116 mg/dL (74-106)
[2017-05-31 08:09] LABS: ALK PHOS 119 U/L (45-117); CREATININE 0.8 mg/dL (0.55-1.02); SGOT/AST 44 U/L (15-37); SGPT/ALT 39 U/L (12-78); TOT PROT 6.1 g/dl (6.4-8.2)
[2017-05-31 08:11] LABS: MCH 29.5 pg (25.7-33.7); MCHC 33.2 g/dl (32.0-36.0); MEAN PLT VOLUME 8.1 fl (7.5-11.1); PLATELET COUNT 337 K/MM3 (134-434); RDW 14.1 % (11.6-15.6); WHITE BLOOD COUNT 10.2 K/mm3 (4.0-10.0)
[2017-05-31] MEDS ORDERED: DEXTROSE 5%-WATER - 50 ML IVPB ONE (10:04)
[2017-05-31] MEDS ORDERED: cefTRIAXone SODIUM 1 GM VIAL ONE (10:04)
[2017-05-31] MEDS: CEFTRIAXONE 1 GM in DEXTROSE 5%-WATER - 50 ML IVPB SCH (10:10)
[2017-05-31] MEDS: HEPARIN NA (PORCINE) 5,000 UNITS/ML 1ML VIAL SQ SCH ×2 (10:10→21:15)
[2017-05-31] MEDS: NAPH,MB-DB/K PH,MBDB POWDER PACKET PO SCH ×2 (10:10→21:17)
[2017-05-31] MEDS: levETIRAcetam 500 MG TABLET (FP) PO SCH ×2 (10:10→21:16)
[2017-05-31] MEDS: LOSARTAN POTASSIUM 50 MG TABLET (FP) PO SCH (10:10)
[2017-05-31] MEDS ORDERED: PT OWN MED DRAWER 7, Y5N ONE (16:01)
--- NOTE | 2017-05-31 18:22 | PN ---
Progress Note, Physician History of Present Illness: No new complaints - Current Medication List Current Medications: Active Medications Acetaminophen (Tylenol -) 650 mg PO Q6H PRN PRN Reason: FEVER OR PAIN Donepezil HCl (Aricept -) 5 mg PO HS [facility] Last Admin: 05/30/17 21:51 Dose: 5 mg Guaifenesin (Robitussin -) 10 ml PO Q6H PRN Last Admin: 05/30/17 20:35 Dose: 10 ml Heparin Sodium (Porcine) (Heparin -) 5,000 unit SQ BID [facility] Last Admin: 05/31/17 10:10 Dose: 5,000 unit Ceftriaxone Sodium 1 gm/ (Dextrose) 50 mls @ 100 mls/hr IVPB DAILY [facility] Last Admin: 05/31/17 10:10 Dose: 100 mls/hr Levetiracetam (Keppra -) 750 mg PO BID [facility] Last Admin: 05/31/17 10:10 Dose: 750 mg Levothyroxine Sodium (Synthroid -) 75 mcg PO DAILY@0700 [facility] Last Admin: 05/31/17 06:08 Dose: 75 mcg Losartan Potassium (Cozaar -) 50 mg PO DAILY [facility] Last Admin: 05/31/17 10:10 Dose: 50 mg Potassium Phos/Sodium Phos (Phos-Nak Packet -) 1 packet PO BID [facility] Last Admin: 05/31/17 10:10 Dose: 1 packet - Objective Vital Signs: Vital Signs Temperature 99.3 F 05/31/17 10:00 Pulse Rate 95 H 05/31/17 10:00 Respiratory Rate 18 05/31/17 10:00 Blood Pressure 146/51 05/31/17 10:00 O2 Sat by Pulse Oximetry (%) 99 05/31/17 09:00 Constitutional: Yes: No Distress Neck: Yes: WNL, Supple Cardiovascular: Yes: WNL, Regular Rate and Rhythm Respiratory: Yes: Wheezes Gastrointestinal: Yes: WNL, Normal Bowel Sounds, Soft Labs: CBC, BMP 05/31/17 06:00 05/31/17 06:00 INR, PTT INR 1.01 (0.82-1.09) 05/22/17 07:45 Problem List - Problems (1) Fever Assessment/Plan: ?Postop fever WBC has decreased to 10.2 Urine culture is negative Pt still w/ cough CXR(05/29/17) showed atelectasis Cont nebulizers Cont IV ceftriaxone As per ID Code(s): R50.9 - FEVER, UNSPECIFIED (2) Vertebral fracture Assessment/Plan: S/P thoracic lamnectomy(T4-T8) w/ fusion Cont PT ?DC planning to STR Cont oxycodone Code(s): [id number] - (3) Hypertension Assessment/Plan: BP stable Cont losartan Code(s): I10 - ESSENTIAL (PRIMARY) HYPERTENSION Qualifiers: Hypertension type: essential hypertension Qualified Code(s): I10 - Essential (primary) hypertension (4) Seizure Assessment/Plan: Cont keppra Code(s): R56.9 - UNSPECIFIED CONVULSIONS (5) Troponin I above reference range Assessment/Plan: Due to demand ischemia Code(s): R74.8 - ABNORMAL LEVELS OF OTHER SERUM ENZYMES (6) Hypothyroidism Assessment/Plan: Cont levothyroxine Code(s): E03.9 - HYPOTHYROIDISM, UNSPECIFIED (7) Dementia Assessment/Plan: Cont aricept Code(s): F03.90 - UNSPECIFIED DEMENTIA WITHOUT BEHAVIORAL DISTURBANCE (8) Syncope Code(s): R55 - SYNCOPE AND COLLAPSE Qualifiers: Syncope type: unspecified Qualified Code(s): R55 - Syncope and collapse
[2017-05-31] MEDS ORDERED: ALBUTEROL SO4 2.5/IPRATROPIUM 0.5 INH SOL 3 ML VIAL.NEB. NEB PRN (18:34)
[2017-05-31] MEDS: ACETAMINOPHEN 325 MG TABLET (FP) PO PRN (20:01)
[2017-05-31] MEDS: guaiFENesin 200 MG/10 ML 10 ML UNIT-DOSE CUPS PO PRN (20:03)
[2017-05-31] MEDS: DONEPEZIL HCL 5 MG TABLET (FP) PO SCH (21:15)
[2017-06-01] MEDS: LEVOTHYROXINE NA 75 MCG TABLET (FP) PO SCH (06:48)
[2017-06-01 08:06] LABS: MCH 29.5 pg (25.7-33.7); MCHC 32.9 g/dl (32.0-36.0); MEAN CELL VOLUME 89.5 fl (80-96); MEAN PLT VOLUME 8.1 fl (7.5-11.1); PLATELET COUNT 338 K/MM3 (134-434); RDW 14.4 % (11.6-15.6); WHITE BLOOD COUNT 8.9 K/mm3 (4.0-10.0)
[2017-06-01] MEDS ORDERED: cefTRIAXone SODIUM 1 GM VIAL ONE (09:00)
[2017-06-01] MEDS ORDERED: DEXTROSE 5%-WATER - 50 ML IVPB ONE (09:00)
[2017-06-01] MEDS: levETIRAcetam 500 MG TABLET (FP) PO SCH ×2 (09:15→21:40)
[2017-06-01] MEDS: HEPARIN NA (PORCINE) 5,000 UNITS/ML 1ML VIAL SQ SCH ×2 (09:16→21:40)
[2017-06-01] MEDS: NAPH,MB-DB/K PH,MBDB POWDER PACKET PO SCH ×2 (09:16→21:48)
[2017-06-01] MEDS: LOSARTAN POTASSIUM 50 MG TABLET (FP) PO SCH (09:16)
[2017-06-01] MEDS: CEFTRIAXONE 1 GM in DEXTROSE 5%-WATER - 50 ML IVPB SCH (09:16)
[2017-06-01 12:20] LABS: PLATELET ESTIMATE ADEQUATE (NORMAL)
--- NOTE | 2017-06-01 12:50 | PN ---
Progress Note (short form) - Note Progress Note: NEUROLOGY FOLLOW-UP: Events reviewed. Patient examined. Discussed with son and son-in-law. Family confirms approx 10 years of progressive cognitive decline coincidental to onset of seizures. Was ambulating at home, independently and without assistive devices. Was attending a [facility]-day program. Now, Patient denies pain. Comfortable in chair eating lunch without assistance. Has been fit for a smaller, rigid, cervical collar which is on her bed at the time of exam. Family notes she is "talking more" since starting donepezil. Appetite good. No GI side effects. B12> 1500. TSH, T4- OK. Levetiracetam level is 90.6 ug% Exam: In NAD. Well-healed surgical scars. Awake, alert, cooperative and friendly. [facility]. No month, year. Not Friday. + Glabellar, snout. Moves all fours well. No cogwheel rigidity. Flexed, shuffling gait. IMP: Moderately severe, B/L cerebral dysfunction c/w Alzheimer's Disease. May be slightly better on Donepezil, according to family. Seizure disorder. Stable on levetiracetam 750 BID Doing well after fall and surgery for spinal fractures. Suggest: Increase Donepezil to 10 mg after breakfast. Continue levetiracetam 750 mg PO BID. Gait with walker. Rehab placement (probably at SNF). Thank you very much, iNr Randall MD
[2017-06-01] MEDS: ACETAMINOPHEN 325 MG TABLET (FP) PO PRN (13:48)
[2017-06-01] MEDS: DONEPEZIL HCL 5 MG TABLET (FP) PO SCH (21:40)
--- NOTE | 2017-06-01 23:47 | PN ---
Progress Note, Physician History of Present Illness: No new complaints - Current Medication List Current Medications: Active Medications Acetaminophen (Tylenol -) 650 mg PO Q6H PRN PRN Reason: FEVER OR PAIN Last Admin: 06/01/17 13:48 Dose: 650 mg Albuterol/Ipratropium (Duoneb -) 1 amp NEB Q6H PRN PRN Reason: SHORTNESS OF BREATH Donepezil HCl (Aricept -) 5 mg PO HS [facility] Last Admin: 06/01/17 21:40 Dose: 5 mg Guaifenesin (Robitussin -) 10 ml PO Q6H PRN Last Admin: 05/31/17 20:03 Dose: 10 ml Heparin Sodium (Porcine) (Heparin -) 5,000 unit SQ BID [facility] Last Admin: 06/01/17 21:40 Dose: 5,000 unit Ceftriaxone Sodium 1 gm/ (Dextrose) 50 mls @ 100 mls/hr IVPB DAILY [facility] Last Admin: 06/01/17 09:16 Dose: 100 mls/hr Levetiracetam (Keppra -) 750 mg PO BID [facility] Last Admin: 06/01/17 21:40 Dose: 750 mg Levothyroxine Sodium (Synthroid -) 75 mcg PO DAILY@0700 [facility] Last Admin: 06/01/17 06:48 Dose: 75 mcg Losartan Potassium (Cozaar -) 50 mg PO DAILY [facility] Last Admin: 06/01/17 09:16 Dose: 50 mg Potassium Phos/Sodium Phos (Phos-Nak Packet -) 1 packet PO BID [facility] Last Admin: 06/01/17 21:48 Dose: 1 packet - Objective Vital Signs: Vital Signs Temperature 98.1 F 06/01/17 15:20 Pulse Rate 79 06/01/17 15:20 Respiratory Rate 18 06/01/17 15:20 Blood Pressure 125/43 06/01/17 15:20 O2 Sat by Pulse Oximetry (%) 97 06/01/17 08:34 Constitutional: Yes: No Distress Cardiovascular: Yes: WNL, Regular Rate and Rhythm Respiratory: Yes: WNL, Regular, CTA Bilaterally Gastrointestinal: Yes: WNL, Normal Bowel Sounds, Soft Labs: CBC, BMP 06/01/17 06:00 05/31/17 06:00 INR, PTT INR 1.01 (0.82-1.09) 05/22/17 07:45 Problem List - Problems (1) Fever Assessment/Plan: Cont IV ceftriaxone DC planning to STR in am WBC is normal Pt afebrile Will change to po antibx on dc Cultures remain negative Code(s): R50.9 - FEVER, UNSPECIFIED (2) Vertebral fracture Assessment/Plan: S/P thoracic lamnectomy(T4-T8) w/ fusion DC planning fro am to STR Code(s): [id number] - (3) Hypertension Code(s): I10 - ESSENTIAL (PRIMARY) HYPERTENSION Qualifiers: Hypertension type: essential hypertension Qualified Code(s): I10 - Essential (primary) hypertension (4) Seizure Assessment/Plan: Cont keppra Code(s): R56.9 - UNSPECIFIED CONVULSIONS (5) Troponin I above reference range Code(s): R74.8 - ABNORMAL LEVELS OF OTHER SERUM ENZYMES (6) Syncope Code(s): R55 - SYNCOPE AND COLLAPSE Qualifiers: Syncope type: unspecified Qualified Code(s): R55 - Syncope and collapse (7) Dementia Assessment/Plan: As per neuro Cont aricept Code(s): F03.90 - UNSPECIFIED DEMENTIA WITHOUT BEHAVIORAL DISTURBANCE (8) Hypothyroidism Assessment/Plan: Cont levothyroxine Code(s): E03.9 - HYPOTHYROIDISM, UNSPECIFIED (9) Musculoskeletal pain Code(s): M79.1 - MYALGIA
[2017-06-02 03:06] VITALS: TEMP 98.7
[2017-06-02] MEDS: LEVOTHYROXINE NA 75 MCG TABLET (FP) PO SCH (06:51)
[2017-06-02 08:03] LABS: MCH 29.8 pg (25.7-33.7); MCHC 33.3 g/dl (32.0-36.0); MEAN CELL VOLUME 89.6 fl (80-96); PLATELET COUNT 387 K/MM3 (134-434); RDW 14.3 % (11.6-15.6); WHITE BLOOD COUNT 9.8 K/mm3 (4.0-10.0)
[2017-06-02 08:24] LABS: ALBUMIN 2.5 g/dl (3.4-5.0); ALK PHOS 153 U/L (45-117); ANION GAP 11 (8-16); CALCIUM 8.1 mg/dL (8.5-10.1); CO2 28 mmol/L (21-32); CREATININE 0.8 mg/dL (0.55-1.02); GLUCOSE,RANDOM 95 mg/dL (74-106); SGOT/AST 75 U/L (15-37); SGPT/ALT 53 U/L (12-78); TOT PROT 6.3 g/dl (6.4-8.2)
--- NOTE | 2017-06-02 09:12 | PN ---
Progress Note, Physician Chief Complaint: ID Ceftriaxone day 4 therapy Afebrile eating her breakfast - Current Medication List Current Medications: Active Medications Acetaminophen (Tylenol -) 650 mg PO Q6H PRN PRN Reason: FEVER OR PAIN Last Admin: 06/01/17 13:48 Dose: 650 mg Albuterol/Ipratropium (Duoneb -) 1 amp NEB Q6H PRN PRN Reason: SHORTNESS OF BREATH Donepezil HCl (Aricept -) 5 mg PO HS [facility] Last Admin: 06/01/17 21:40 Dose: 5 mg Guaifenesin (Robitussin -) 10 ml PO Q6H PRN Last Admin: 05/31/17 20:03 Dose: 10 ml Heparin Sodium (Porcine) (Heparin -) 5,000 unit SQ BID [facility] Last Admin: 06/01/17 21:40 Dose: 5,000 unit Ceftriaxone Sodium 1 gm/ (Dextrose) 50 mls @ 100 mls/hr IVPB DAILY [facility] Last Admin: 06/01/17 09:16 Dose: 100 mls/hr Levetiracetam (Keppra -) 750 mg PO BID [facility] Last Admin: 06/01/17 21:40 Dose: 750 mg Levothyroxine Sodium (Synthroid -) 75 mcg PO DAILY@0700 [facility] Last Admin: 06/02/17 06:51 Dose: 75 mcg Losartan Potassium (Cozaar -) 50 mg PO DAILY [facility] Last Admin: 06/01/17 09:16 Dose: 50 mg Potassium Phos/Sodium Phos (Phos-Nak Packet -) 1 packet PO BID [facility] Last Admin: 06/01/17 21:48 Dose: 1 packet - Objective Vital Signs: Vital Signs Temperature 98.7 F 06/02/17 07:55 Pulse Rate 80 06/02/17 07:55 Respiratory Rate 20 06/02/17 07:55 Blood Pressure 134/59 06/02/17 07:55 O2 Sat by Pulse Oximetry (%) 97 06/01/17 21:00 Constitutional: Yes: Well Nourished, No Distress HENT: Yes: WNL, Atraumatic Respiratory: Yes: WNL, Regular, CTA Bilaterally, Diminished Gastrointestinal: Yes: WNL, Normal Bowel Sounds, Soft Labs: CBC, BMP 06/02/17 06:30 06/02/17 06:30 INR, PTT INR 1.01 (0.82-1.09) 05/22/17 07:45 Assessment/Plan Microbiology 05/29/17 07:00 Urine - Urine Clean Catch Urine Culture - Final Contaminated: Please Repeat 05/22/17 13:00 Urine - Urine Clean Catch Urine Culture - Final NO GROWTH OBTAINED 05/29/17 12:46 Blood - Peripheral Venous Blood Culture - Preliminary NO GROWTH OBTAINED AFTER 72 HOURS, INCUBATION TO CONTINUE FOR 2 DAYS. 05/29/17 12:40 Blood - Peripheral Venous Blood Culture - Preliminary NO GROWTH OBTAINED AFTER 72 HOURS, INCUBATION TO CONTINUE FOR 2 DAYS. Laboratory Tests 06/02/17 06:30 WBC 9.8 Hgb 9.8 L D Hct 29.4 L Plt Count 387 Assessment Source of fever ? PNA vs urinary tract Afebrile now Plan Could switch to po therapy Ceftin 500mg bid few more day (3) Jesica KEYS
[2017-06-02] MEDS ORDERED: CEFUROXIME AXETIL 500 MG TABLET PO SCH (10:00)
[2017-06-02] MEDS: levETIRAcetam 500 MG TABLET (FP) PO SCH (10:55)
[2017-06-02] MEDS: LOSARTAN POTASSIUM 50 MG TABLET (FP) PO SCH (10:55)
[2017-06-02] MEDS: ACETAMINOPHEN 325 MG TABLET (FP) PO PRN (10:55)
[2017-06-02] MEDS: HEPARIN NA (PORCINE) 5,000 UNITS/ML 1ML VIAL SQ SCH (10:56)
[2017-06-02] MEDS: NAPH,MB-DB/K PH,MBDB POWDER PACKET PO SCH (10:56)
--- NOTE | 2017-06-02 11:04 | PN ---
Progress Note, Physician History of Present Illness: seen and examined today in [facility]. no overnight events. no new complaints. - Current Medication List Current Medications: Active Medications Acetaminophen (Tylenol -) 650 mg PO Q6H PRN PRN Reason: FEVER OR PAIN Last Admin: 06/02/17 10:55 Dose: 650 mg Albuterol/Ipratropium (Duoneb -) 1 amp NEB Q6H PRN PRN Reason: SHORTNESS OF BREATH Cefuroxime Axetil (Ceftin -) 500 mg PO BID [facility] Last Admin: 06/02/17 10:56 Dose: 500 mg Donepezil HCl (Aricept -) 5 mg PO HS [facility] Last Admin: 06/01/17 21:40 Dose: 5 mg Guaifenesin (Robitussin -) 10 ml PO Q6H PRN Last Admin: 05/31/17 20:03 Dose: 10 ml Levetiracetam (Keppra -) 750 mg PO BID [facility] Last Admin: 06/02/17 10:55 Dose: 750 mg Levothyroxine Sodium (Synthroid -) 75 mcg PO DAILY@0700 [facility] Last Admin: 06/02/17 06:51 Dose: 75 mcg Losartan Potassium (Cozaar -) 50 mg PO DAILY [facility] Last Admin: 06/02/17 10:55 Dose: 50 mg Potassium Phos/Sodium Phos (Phos-Nak Packet -) 1 packet PO BID [facility] Last Admin: 06/02/17 10:56 Dose: 1 packet - Objective Vital Signs: Vital Signs Temperature 98.7 F 06/02/17 07:55 Pulse Rate 80 06/02/17 07:55 Respiratory Rate 20 06/02/17 07:55 Blood Pressure 134/59 06/02/17 07:55 O2 Sat by Pulse Oximetry (%) 97 06/01/17 21:00 Constitutional: Yes: No Distress, Calm Eyes: Yes: Conjunctiva Clear, EOM Intact, PERRL HENT: Yes: Atraumatic, Normocephalic Neck: Yes: Supple, Trachea Midline Cardiovascular: Yes: Regular Rate and Rhythm, S1, S2. No: Bradycardia, Tachycardia, Pulse Irregular, Bruit, JVD, Gallop, Murmur, Rub, S3, S4, Varicosities Respiratory: Yes: Regular, Diminished. No: Rales, Rhonchi, Wheezes Gastrointestinal: Yes: Normal Bowel Sounds, Soft Edema: No Peripheral Pulses: Left Doralis Pedis: 2+, Right Dorsalis Pedis: 2+ Psychiatric: Yes: Alert, Oriented Labs: CBC, BMP 06/02/17 06:30 06/02/17 06:30 INR, PTT INR 1.01 (0.82-1.09) 05/22/17 07:45 - ....Imaging Chest X-ray: Report Reviewed, Image Reviewed EKG: Report Reviewed, Image Reviewed Other: Report Reviewed, Image Reviewed Assessment/Plan Probable seizure resulting in fall and cervical and thoracic spine fractures s/ p surgical stabilization Perioperative cardiac risk stratification Chronic HTN Abnormal/Non-specific ECG REC: Perioperative cardiac evaluation -pt tolerated procedure well from a cardiac standpoint -elevated cardiac enzymes believed to be due to seizure and chronic valve dz -EKG during admission showed NSR with PVCs -echo preop showed low normal LV systolic function, mod to sev MR, mild AR/TR, mild Pulm htn -no additional inpatient cardiac work up needed at this point[facility] HTN:adequately controlled -Cont Losartan 50mg daily
[2017-06-02 11:22] LABS: PLATELET ESTIMATE ADEQUATE (NORMAL)
[2017-06-02] MEDS ORDERED: PT OWN MED DRAWER 7, Y5N ONE (11:36)
[2017-06-02 12:42] VITALS: BP 115/56
[2017-06-02 15:21] VITALS: PULSE 90
== END 2017-06-02 16:48 | disposition home or self-care (01) | DRG 460 ==
LOC: JER 06:24 → JERBED 16:11 → J4W 22:20 → JSAMEDAYSX 05-23 14:35 → JICU 05-23 17:22 → J8W 05-25 20:23
PROVIDERS: ADMIT Internal Medicine; ATTEND Internal Medicine
PROC: 0RG70J1 Fusion of 2 to 7 Thoracic Vertebral Joints with Synthetic Substitute, Posterior Approach, Posterior Column, Open Approach (ICD-10-PCS; principal; 2017-05-23 09:00)
PROC: 30233N1 Transfusion of Nonautologous Red Blood Cells into Peripheral Vein, Percutaneous Approach (ICD-10-PCS; 2017-05-25)
DX: S22.051A Stable burst fracture of T5-T6 vertebra, initial encounter for closed fracture (principal); J98.11 Atelectasis; S22.039A Unspecified fracture of third thoracic vertebra, initial encounter for closed fracture; S22.049A Unspecified fracture of fourth thoracic vertebra, initial encounter for closed fracture; S22.058A Other fracture of T5-T6 vertebra, initial encounter for closed fracture; M43.8X4 Other specified deforming dorsopathies, thoracic region; W19.XXXA Unspecified fall, initial encounter; Y93.9 Activity, unspecified; Y92.098 Other place in other non-institutional residence as the place of occurrence of the external cause; Y99.9 Unspecified external cause status; I10 Essential (primary) hypertension; R55 Syncope and collapse; F03.90 Unspecified dementia, unspecified severity, without behavioral disturbance, psychotic disturbance, mood disturbance, and anxiety; E03.9 Hypothyroidism, unspecified; M79.1 Myalgia; R50.9 Fever, unspecified; R50.82 Postprocedural fever; E83.39 Other disorders of phosphorus metabolism; G40.909 Epilepsy, unspecified, not intractable, without status epilepticus; D64.9 Anemia, unspecified
CPT/HCPCS: 36415; 36430; 70450-TC; 70548-TC; 71010-TC; 71020-TC; 72100-TC; 72125-TC; 72128-TC; 72141-TC; 72146-TC; 73562-TC-RT; 76000-TC; 80048; 80053; 81003; 81015; 82553; 82607; 83735; 84100; 84439; 84443; 84484; 85025; 85027; 85610; 86593; 86850; 86900; 86901; 86922; 87040; 87086; 88304-TC; 93005; 93010; 93306-TC; 93880-TC; 94010; 94760; 97116-GP; 97162-GP; 99283-25; J1644; P9038; P9058

== ENCOUNTER 2017-06-24 17:54 | Emergency (ER) | payer OTHER ==
[2017-06-24 18:00] VITALS: TEMP 98.2; BMI 26.1
--- NOTE | 2017-06-24 20:44 | PDOC ---
History of Present Illness - General Chief Complaint: Rectal Bleed Stated Complaint: DIARRHEA/BLOODY STOOLS/URINE/RECENT BACK SX Time Seen by Provider: 06/24/17 19:51 - History of Present Illness Initial Comments: 06/24/17 20:44 CHIEF COMPLAINT: blood in stool HISTORY OF PRESENT ILLNESS: 77 yo F with hx of HTN, hypothyroidism, seizure disorder (on Keppra, no missed doses, last seizure about one year ago), dementia s/p thoracic spine surgery 05/27/17 presents to ED with family at bedside with concerns of blood in stool. Per patient's daughter, patient lives at home but attends and adult program; while at the program today it was noticed that she had some episodes of diarrhea tinged with a pink color. When the patient returned home, the family states that they put a diaper on her and noticed there was some blood in the stool as well. Patient currently denies any chest or abdominal pain, lightheadedness, dizziness, palpitations, or any other symptoms. Family states that the patient was evaluated by the doctor at the adult program and had no complaints at that time either. PAST MEDICAL HISTORY: as per HPI FAMILY HISTORY: Denies SOCIAL HISTORY: Lives at home with family. Denies tobacco, alcohol, illicit drug use. SURGICAL HISTORY: Denies ALLERGIES: PCN REVIEW OF SYSTEMS General/Constitutional: Denies fever or chills. Denies weakness, weight change. HEENT: Denies change in vision. Denies ear pain or discharge. Denies sore throat. Cardiovascular: Denies chest pain or shortness of breath. Respiratory: Denies cough, wheezing, or hemoptysis. Gastrointestinal: Blood in stool. Denies nausea, vomiting, diarrhea or constipation. Genitourinary: Denies dysuria, frequency, or change in urination. Musculoskeletal: Denies joint or muscle swelling or pain. Denies neck or back pain. Skin and breasts: Denies rash or easy bruising. Neurologic: Denies headache, vertigo, loss of consciousness, or loss of sensation. PHYSICAL EXAM General Appearance: Well-appearing, appropriately dressed. No apparent distress , no intoxication. HEENT: EOMI, PERRLA, normal ENT inspection, normal voice, TMs normal, pharynx normal. No conjunctival pallor. No photophobia, scleral icterus. Neck: Supple. Trachea midline. No tenderness, rigidity, carotid bruit, stridor , lymphadenopathy, or thyromegaly. Respiratory/Chest: Lungs CTAB. No shortness of breath, chest tenderness, respiratory distress, accessory muscle use. No crackles, rales, rhonchi, stridor , wheezing, dullness Cardiovascular: RRR. S1, S2. No JVD, murmur, bradycardia, tachycardia. Vascular Pulses: Dorsalis-Pedis (R): 2+, Dorsalis-Pedis (L): 2+ Gastrointestinal/Abdominal: Normal bowel sounds. Abdomen soft, non-distended. No tenderness or rebound tenderness. No organomegaly, pulsatile mass, guarding , hernia, hepatomegaly, splenomegaly. Lymphatic: No adenopathy, tenderness. Musculoskeletal/Extremities: Normal inspection. FROM of all extremities, normal capillary refill. Pelvis Stable. No CVA tenderness. No tenderness to extremities, pedal edema, swelling, erythema or deformity. Integumentary: Appropriate color, dry, warm. 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 Fully oriented, alert. Appropriate mood/affect. Motor strength 5/5. No appreciable EOM palsy, facial droop or sensory deficit. 06/24/17 21:46 Past History - Past Medical History Allergies/Adverse Reactions: Allergies Allergy/AdvReac Type Severity Reaction Status Date / Time Penicillins Allergy Verified 06/24/17 18:00 Home Medications: Ambulatory Orders Levetiracetam [Keppra] 1,500 mg PO BID 11/25/13 Levothyroxine [Synthroid -] 75 mcg PO DAILY 11/25/13 Losartan Potassium 50 mg PO DAILY 11/25/13 Albuterol 2.5/Ipratropium 0.5 [Duoneb -] 1 amp NEB Q6H PRN #1 amp 06/02/17 Cefuroxime Axetil [Ceftin -] 500 mg PO BID #20 tablet 06/02/17 Donepezil HCl [Aricept -] 5 mg PO HS #30 tablet 06/02/17 Levetiracetam [Keppra -] 750 mg PO BID tablet 06/02/17 Nitrofurantoin Monohyd/M-Cryst [Macrobid -] 100 mg PO BID #14 capsule 06/25/17 Anemia: No Asthma: No Cancer: No Cardiac Disorders: No CVA: No COPD: No CHF: No Dementia: Yes Diabetes: No GI Disorders: No Disorders: No HTN: Yes Hypercholesterolemia: No Liver Disease: No Psychiatric Problems: (mild dementia) Seizures: Yes Thyroid Disease: Yes Other medical history: back sx - Surgical History Abdominal Surgery: No Appendectomy: No Cardiac Surgery: No Cholecystectomy: Yes Lung Surgery: No Neurologic Surgery: No Orthopedic Surgery: No - Immunization History Immunization Up to Date: Yes - Psycho/Social/Smoking Cessation Hx Anxiety: No Suicidal Ideation: No Smoking Status: No Smoking History: Never smoked Have you smoked in the past 12 months: No Number of Cigarettes Smoked Daily: 0 Information on smoking cessation initiated: No Hx Alcohol Use: No Drug/Substance Use Hx: No Substance Use Type: None Hx Substance Use Treatment: No *Physical Exam - Vital Signs Last Vital Signs Temp Pulse Resp BP Pulse Ox 98.2 F 91 H 18 119/78 98 06/24/17 17:58 06/24/17 17:58 06/24/17 17:58 06/24/17 17:58 06/24/17 17:58 ED Treatment Course - LABORATORY CBC & Chemistry Diagram: 06/24/17 21:25 06/24/17 23:33 - ADDITIONAL ORDERS Additional order review: Laboratory Results 06/24/17 20:28 Stool Occult Blood Trace Medical Decision Making - Medical Decision Making 06/24/17 21:47 77 yo F with hx of HTN, hypothyroidism, seizure disorder (on Keppra, no missed doses, last seizure about one year ago), dementia s/p thoracic spine surgery 05/27 presents to ED with family at bedside with concerns of blood in stool. VS remarkable for HR 91. -CBC, CMP, PT/PTT/INR, T&S -Guaiac -UA, UCx -EKG Labs: UA positive for 76 WBC. -Ceftriaxone IVPB 06/24/17 21:48 *DC/Admit/Observation/Transfer Diagnosis at time of Disposition: Blood present in stool Urinary tract infection Qualifiers: Urinary tract infection type: site unspecified Hematuria presence: without hematuria Qualified Code(s): N39.0 - Urinary tract infection, site not specified - Discharge Dispostion Disposition: HOME Condition at time of disposition: Stable Admit: No - Prescriptions Prescriptions: Nitrofurantoin Monohyd/M-Cryst [Macrobid -] 100 mg PO BID #14 capsule - Patient Instructions Printed Discharge Instructions: DI for Hemorrhoids, DI for Rectal Bleeding, DI for Urinary Tract Infection (UTI) Additional Instructions: Please take medications as prescribed. Follow up with Dr. Flores and a peanut salter this week as discussed. If you develop any abdominal pain, palpitations, lightheadedness, chest pain, shortness of breath, dizziness, weakness, or any new or worsening symptoms, please return to the ER.
--- NOTE | 2017-06-24 20:55 | PDOC ---
*Physical Exam - Vital Signs Last Vital Signs Temp Pulse Resp BP Pulse Ox 98.2 F 91 H 18 119/78 98 06/24/17 17:58 06/24/17 17:58 06/24/17 17:58 06/24/17 17:58 06/24/17 17:58 ED Treatment Course - LABORATORY CBC & Chemistry Diagram: 06/24/17 21:25 06/24/17 23:33 - ADDITIONAL ORDERS Additional order review: Laboratory Results 06/24/17 20:28 Stool Occult Blood Trace Medical Decision Making - Medical Decision Making 06/24/17 20:55 agree with care from JD Randolph *DC/Admit/Observation/Transfer Diagnosis at time of Disposition: Blood in stool, UTI (urinary tract infection) - Discharge Dispostion Disposition: HOME Condition at time of disposition: Stable - Prescriptions Prescriptions: Nitrofurantoin Monohyd/M-Cryst [Macrobid -] 100 mg PO BID #14 capsule - Referrals Referrals: Bessy Flores MD [Primary Care Provider] - - Patient Instructions Printed Discharge Instructions: DI for Hemorrhoids, DI for Urinary Tract Infection (UTI), DI for Rectal Bleeding Additional Instructions: Please take medications as prescribed. Follow up with Dr. Flores and a master fire control technician this week as discussed. If you develop any abdominal pain, palpitations, lightheadedness, chest pain, shortness of breath, dizziness, weakness, or any new or worsening symptoms, please return to the ER.
[2017-06-24 21:31] LABS: URINE APPEARANCE SLCLOUDY; URINE BLOOD NEGATIVE (NEGATIVE); URINE COLOR AMBER; URINE GLUCOSE (UA) NEGATIVE (NEGATIVE); URINE KETONE TRACE (NEGATIVE); URINE NITRITE NEGATIVE (NEGATIVE); URINE UROBILINOGEN 4.0 E.U/dl mg/dL (0.2-1.0)
[2017-06-24 21:33] LABS: URINE LEUK ESTERASE 3+ (NEGATIVE); URINE PROTEIN 1+ (NEGATIVE)
[2017-06-24 21:36] LABS: URINE BACTERIA FEW /hpf (NONE SEEN); URINE HYALINE CAST 2 /lpf; URINE MUCUS RARE; URINE RBC 5 /hpf (0-3); URINE WBC 76 /hpf (3-5)
[2017-06-24 21:42] LABS: BASOPHIL 0.7 % (0-2.0); EOSINOPHIL 0.3 % (0-4.5); MCH 29.8 pg (25.7-33.7); MCHC 32.7 g/dl (32.0-36.0); MEAN CELL VOLUME 91.1 fl (80-96); MEAN PLT VOLUME 7.6 fl (7.5-11.1); NEUTROPHILS 78.9 % (42.8-82.8); PLATELET COUNT 256 K/MM3 (134-434); WHITE BLOOD COUNT 13.7 K/mm3 (4.0-10.0)
[2017-06-24] MEDS ORDERED: LOPERAMIDE HCL 2 MG CAPSULE PO ONE (21:55)
[2017-06-24] MEDS ORDERED: SODIUM CHLORIDE 0.9% 1000 ML INFUS.BAG IV ONE (21:55)
[2017-06-24] MEDS ORDERED: CEFTRIAXONE 50 ML ONE (22:12)
[2017-06-24] MEDS ORDERED: LOPERAMIDE HCL 2 MG CAPSULE ONE (22:12)
[2017-06-24 22:23] LABS: INR 1.01 (0.82-1.09); PROTHROMBIN TIME (PATIENT) 11.1 SEC (9.98-11.88)
[2017-06-24] MEDS: CEFTRIAXONE 1 GM in DEXTROSE 5%-WATER - 50 ML IVPB ONE ×2 (23:05→23:06)
[2017-06-25 00:20] LABS: ALBUMIN 3.1 g/dl (3.4-5.0); ANION GAP 12 (8-16); BILIRUBIN,TOTAL 0.4 mg/dL (0.2-1.0); CALCIUM 8.7 mg/dL (8.5-10.1); CO2 21 mmol/L (21-32); CREATININE 1.2 mg/dL (0.55-1.02); GLUCOSE,RANDOM 116 mg/dL (74-106); SGOT/AST 25 U/L (15-37); SGPT/ALT 16 U/L (12-78); TOT PROT 6.8 g/dl (6.4-8.2)
[2017-06-25 00:25] LABS: ALK PHOS 146 U/L (45-117); CPK 63 IU/L (26-192); TROPONIN I < 0.02 ng/ml (0.00-0.05)
[2017-06-25 02:26] VITALS: BP 151/69; PULSE 96
--- NOTE | 2017-06-26 12:23 | EKG ---
Test Reason : Blood Pressure : / mmHG Vent. Rate : 102 BPM Atrial Rate : 102 BPM P-R Int : 146 ms QRS Dur : 094 ms QT Int : 352 ms P-R-T Axes : 046 -16 128 degrees QTc Int : 458 ms POOR DATA QUALITY, INTERPRETATION MAY BE ADVERSELY AFFECTED SINUS TACHYCARDIA WITH FUSION COMPLEXES LOW VOLTAGE QRS CANNOT RULE OUT ANTERIOR INFARCT , AGE UNDETERMINED ABNORMAL ECG WHEN COMPARED WITH ECG OF 28-MAY-2017 09:29, PREMATURE VENTRICULAR COMPLEXES ARE NO LONGER PRESENT Confirmed by EVELINA GONZALES MD ([id number]) on 06/26/2017 12:23:01 PM Referred By: Confirmed By:EVELINA GONZALES MD
== END 2017-06-25 02:26 | disposition home or self-care (01) ==
LOC: JER 17:54
PROC: 3E033GC Introduction of Other Therapeutic Substance into Peripheral Vein, Percutaneous Approach (ICD-10-PCS; principal; 2017-06-24)
DX: N39.0 Urinary tract infection, site not specified (principal); K92.1 Melena; I10 Essential (primary) hypertension; E78.00 Pure hypercholesterolemia, unspecified; Z86.69 Personal history of other diseases of the nervous system and sense organs; F03.90 Unspecified dementia, unspecified severity, without behavioral disturbance, psychotic disturbance, mood disturbance, and anxiety; Z98.890 Other specified postprocedural states
CPT/HCPCS: 36415; 80053; 81003; 81015; 82272; 84484; 85025; 85610; 85730; 86850; 86900; 86901; 87086; 93005; 93010; 99283-25

== ENCOUNTER 2019-12-20 06:53 | Emergency (ER) | payer OTHER ==
[2019-12-20 06:59] VITALS: TEMP 97.5; BMI 25.0
--- NOTE | 2019-12-20 07:38 | PDOC ---
History of Present Illness - General Chief Complaint: Seizure Stated Complaint: SEIZURE Time Seen by Provider: 12/20/19 07:21 - History of Present Illness Initial Comments: 12/20/19 07:37 The patient is a 79 y/o female with a PMH of seizure disorder, dementia, HTN, hypothyroidism here with multiple episodes of staring off and not responding that started yesterday evening. Daughter @ bedside provides history and notes that patient had a few of these episodes yesterday lasting 10-15 seconds and when patient had an episode this morning lasting 5 minutes she decided to bring her to the ED for further evaluation. No recent illness, known trauma or known sick contacts. States some of the dosages of her seizure medications were increased in September but she can't remember exactly which medications were changed. Has pill bottles at bedside including Keppra and Depakote. Allergy: Penicillin Past History - Past Medical History Allergies/Adverse Reactions: Allergies Allergy/AdvReac Type Severity Reaction Status Date / Time Penicillins Allergy Verified 05/22/18 14:16 Home Medications: Ambulatory Orders Levothyroxine [Synthroid -] 75 mcg PO DAILY 05/20/18 Memantine HCl [Namenda -] 5 mg PO BID #60 tablet 05/27/18 Calcium Carbonate/Vitamin D3 [Calcium 500-Vit D3 400 Tablet] 1 tab PO BID 12/20/19 Divalproex [Depakote -] 500 mg PO DAILY #7 tablet.ec 12/20/19 Divalproex [Depakote -] 750 mg PO DAILY 12/20/19 Levetiracetam 500 mg PO HS 12/20/19 Losartan Potassium 50 mg PO DAILY 12/20/19 levETIRAcetam [Keppra Xr -] 750 mg PO AM 12/20/19 Anemia: No Asthma: No Cancer: No Cardiac Disorders: No CVA: No COPD: No CHF: No DVT: No Dementia: Yes Diabetes: No GI Disorders: No Disorders: No HTN: Yes Hypercholesterolemia: No Liver Disease: No Psychiatric Problems: (mild dementia) Seizures: Yes Thyroid Disease: Yes - Surgical History Abdominal Surgery: No Appendectomy: No Cardiac Surgery: No Cholecystectomy: Yes Lung Surgery: No Neurologic Surgery: No Orthopedic Surgery: No - Immunization History Immunization Up to Date: Yes - Psycho Social/Smoking Cessation Hx Smoking Status: No Smoking History: Never smoked Have you smoked in the past 12 months: No Number of Cigarettes Smoked Daily: 0 Information on smoking cessation initiated: No Hx Alcohol Use: No Drug/Substance Use Hx: No Substance Use Type: None Hx Substance Use Treatment: No Review of Systems - Review of Systems Able to Perform ROS?: No (Dementia) Comments:: 12/21/19 11:56 Patient has dementia and is minimally verbal @ baseline *Physical Exam - Vital Signs Last Vital Signs Temp Pulse Resp BP Pulse Ox 97.5 F L 67 18 137/63 99 12/20/19 06:54 12/20/19 06:54 12/20/19 06:54 12/20/19 06:54 12/20/19 06:54 - Physical Exam General Appearance: Yes: Nourished, Appropriately Dressed Neck: positive: Trachea midline, Supple Respiratory/Chest: positive: Lungs Clear, Normal Breath Sounds. negative: Labored Respiration, Rapid RR Cardiovascular: positive: Regular Rhythm, S1, S2 Vascular Pulses: Dorsalis-Pedis (R): 2+, Doralis-Pedis (L): 2+ Gastrointestinal/Abdominal: positive: Normal Bowel Sounds, Soft Extremity: positive: Normal Capillary Refill, Normal Inspection Integumentary: positive: Normal Color, Dry, Warm Neurologic: positive: Alert, Other (Patient intermittently verbal (baseline)) ED Treatment Course - LABORATORY CBC & Chemistry Diagram: 12/20/19 10:35 12/20/19 08:19 Medical Decision Making - Medical Decision Making 12/20/19 08:03 79 y/o female with a PMHx including seizure disorder and dementia here for episodes off staring and not responding to her name over the last 48 hours. VS unremarkable Will evaluate for metabolic derangements, occult infection and subtherapeutic anti-convulsant levels. Low clinical suspicion for seizure as patient does have repeat episodes however patient does respond to voice. 12/20/19 12:13 No leukocytosis Cr 1.4 (baseline as per EMR) Depakote 33.4 12/20/19 12:57 Case d/w patient's neurologist, Dr. Kathleen Gupta - last Depakote level two months previous was 73; can increase current Depakote from 250 mg to 500 mg QHS. Will see patient in office on 12/27/19 @ 4:15. Plan discussed with patient's daughter. Will discharge home with return precautions. Clinical Impression: Subtherapeutic Valproic Acid Discharge - Discharge Information Problems reviewed: Yes Clinical Impression/Diagnosis: Seizure Condition: Good Disposition: HOME - Additional Discharge Information Prescriptions: Divalproex [Depakote -] 500 mg PO DAILY #7 tablet.ec - Follow up/Referral Referrals: Bessy Flores MD [Primary Care Provider] - - Patient Discharge Instructions Additional Instructions: Please increase your Depakote Dose to from 250 mg to 500 mg at night (take 2 tablets) and keep taking the 750 in the morning. Keep taking the Leviteracam as you have been doing. An appointment has been made with Dr. Grimes on December 26 at 4:15 - please call the office to confirm this appointment or if you need to change this appointment. Return to the Emergency Department for any new/worsening/concerning symptoms. - Post Discharge Activity
--- NOTE | 2019-12-20 07:58 | PDOC ---
Attending Attestation - Resident Resident Name: Maria Alejandra Wynn - ED Attending Attestation I have performed the following: I have examined & evaluated the patient, The case was reviewed & discussed with the resident, I agree w/resident's findings & plan, Exceptions are as noted - HPI HPI: 12/20/19 07:49 79y F hx of dementia, seizures (keppra, depakote), hypothyrodism, ckd, htn, presents with suspected seizuers - per aide, she would stare of into space - this is consistent with her typical seizure episodes lasting for 10-15 seconds, today she did the same when she stared off into 5 minutes. Pt has not had any fever/chils, cough, diarrhea, dysuria. per the daugther the patient is currently at her baseline mental status. Patient recently had Depakote added to her regimen approximate 1 month ago. She had lab work done last week and was told it was normal on Friday. There was no witnessed tonic-clonic activity, urinary or bowel incontinence or loss of tone (the patient will remain standing when she has these episodes if she was upright) exam: GENERAL: The patient is awake, alert, Nontoxic - in no acute distress. HEAD: Normocephalic, atraumatic. EYES: extraocular movements intact, sclera anicteric, conjunctiva clear. ENT: Normal voice, Moist mucous membranes. NECK: Normal range of motion, supple LUNGS: Breath sounds equal, clear to auscultation bilaterally. No wheezes, no rhonchi, no rales. HEART: Regular rate and rhythm, normal S1 and S2 without murmur, rub or gallop. ABDOMEN: Soft, nontender, No guarding, no rebound. No CVA tenderness EXTREMITIES: Normal range of motion, no edema. NEUROLOGICAL: No facial assymetry, Normal speech, moving all 4 extremity spontaneously and symmetrically PSYCH: Normal mood, normal affect. SKIN: Warm, Dry, normal turgor, - Physicial Exam PE: 12/23/19 10:16 see above - Medical Decision Making 12/20/19 09:41 The patient does have an occasional episode where she will glance off to the right, however when you say her name she will look at you. Will obtain screening lab work, UA to screen for metabolic derangements, occult infection. We will send anticonvulsive levels. Will discuss with her neurologist 12/20/19 13:59 The patient's labs are reviewed noted for mild CKD creatinine is just slightly elevated and prior. Her valproic acid is a bit low the case was discussed with her neurologist. Will discharge with outpatient follow-up, family was discussed and involved in the plan they are comfortable with the plan.
--- NOTE | 2019-12-20 09:15 | EKG ---
Test Reason : Blood Pressure : / mmHG Vent. Rate : 057 BPM Atrial Rate : 057 BPM P-R Int : 136 ms QRS Dur : 104 ms QT Int : 446 ms P-R-T Axes : 000 186 089 degrees QTc Int : 434 ms POOR DATA QUALITY, INTERPRETATION MAY BE ADVERSELY AFFECTED SUSPECT ARM LEAD REVERSAL, INTERPRETATION ASSUMES NO REVERSAL SINUS BRADYCARDIA WITH OCCASIONAL PREMATURE VENTRICULAR COMPLEXES LOW VOLTAGE QRS WHEN COMPARED WITH ECG OF 22-MAY-2018 17:25, Repeat ECG Confirmed by Jen Carver ([id number]) on 12/20/2019 9:14:48 AM Referred By: Confirmed By:Jen Carver
[2019-12-20 10:53] LABS: BASO % 0.9 % (0-2.0); EOS % 1.2 % (0-4.5); HEMOGLOBIN 11.4 GM/dL (10.7-15.3); LYMPH % 26.6 % (8-40); MCH 30.9 pg (25.7-33.7); MCHC 33.6 g/dl (32.0-36.0); MEAN CELL VOLUME 91.8 fl (80-96); MEAN PLT VOLUME 9.1 fl (7.5-11.1); MONO % 13.4 % (3.8-10.2); NEUT % 57.9 % (42.8-82.8); PLATELET COUNT 167 K/MM3 (134-434); WHITE BLOOD COUNT 6.4 K/mm3 (4.0-10.0)
[2019-12-20 11:06] LABS: INR 0.98 (0.83-1.09); PROTHROMBIN TIME (PATIENT) 11.6 SEC (9.7-13.0)
[2019-12-20 11:28] LABS: ALBUMIN 3.1 g/dl (3.4-5.0); BILIRUBIN,TOTAL 0.5 mg/dL (0.2-1); BLOOD UREA NITROGEN 24.9 mg/dL (7-18); CALCIUM 8.4 mg/dL (8.5-10.1); CREATININE 1.4 mg/dL (0.55-1.3); POTASSIUM 4.9 mmol/L (3.5-5.1); TOT PROT 7.4 g/dl (6.4-8.2)
[2019-12-20] MEDS ORDERED: levETIRAcetam XR 750 MG TAB PO ONE (13:33)
[2019-12-20] MEDS ORDERED: levETIRAcetam 500 MG TABLET (FP) PO ONE (13:33)
[2019-12-20 14:00] VITALS: BP 148/45; PULSE 63
== END 2019-12-20 14:01 | disposition home or self-care (01) ==
LOC: JER 06:53
DX: G40.909 Epilepsy, unspecified, not intractable, without status epilepticus (principal); I12.9 Hypertensive chronic kidney disease with stage 1 through stage 4 chronic kidney disease, or unspecified chronic kidney disease; N18.9 Chronic kidney disease, unspecified; E03.9 Hypothyroidism, unspecified; F03.90 Unspecified dementia, unspecified severity, without behavioral disturbance, psychotic disturbance, mood disturbance, and anxiety; Z88.0 Allergy status to penicillin
CPT/HCPCS: 36415; 71045-TC-FY; 73562-TC-RT-FY; 80053; 80164; 80177; 82550; 84484; 85025; 85610; 93005; 93010; 99285-25

== ENCOUNTER 2019-12-21 19:00 | Emergency (ER) | payer OTHER ==
[2019-12-21 19:08] VITALS: TEMP 97.8; BMI 25.0
--- NOTE | 2019-12-21 19:48 | PDOC ---
Documentation entered by Shakira Austin SCRIBE, acting as scribe for Rashida Fuchs MD. Rashida Fuchs MD: This documentation has been prepared by the Geovanna bryant Xhesika, SCRIBE, under my direction and personally reviewed by me in its entirety. I confirm that the documentation accurately reflects all work, treatment, procedures, and medical decision making performed by me. Attending Attestation - Resident Resident Name: Jose Parsons - ED Attending Attestation I have performed the following: I have examined & evaluated the patient, The case was reviewed & discussed with the resident, I agree w/resident's findings & plan, Exceptions are as noted - HPI HPI: 12/21/19 22:36 This 79-year-old female was brought in from her daytime treatment center for repetitive head movements. She does have a history of seizures and there was a concern that maybe this was a seizure activity. Patient actually was seen in the emergency department yesterday for seizure and found to have a Depakote level that was low and she was supplemented. Patient does have a neurologist that she sees and will follow-up as an outpatient. - Physicial Exam PE: 12/21/19 21:11 petite 79 yo female in no acute distress BIBA because of a repetitive head movements noted during her day treatment program 12/21/19 21:12 head ncat Oral no tongue trauma lungs cta b/l cvs [id number] abdomen soft,nontender ext no edema neuro alert - Medical Decision Making 12/21/19 19:48 79-year-old female returns to the emergency department because of concerns by the program physician. The patient apparently has this repetitive behavior where she looks off to 1 side and then looks forward again. This is a repetitive behavior happening multiple times during the day. Patient has history of dementia. There is no tongue trauma, no tonic-clonic seizures, no support no postictal state, no acute urinary incontinence. 12/21/19 19:49 Patient was seen here yesterday and her valproic acid level was about 33 which was low and she was supplemented She does have a neurologist that follows her Yesterday they did NOT get a CAT scan of the head or send a urine so we will do these 2 things now 12/21/19 20:30 EKG is bradycardia 54 beats per minutes 12/21/19 21:13 UA no UTI 12/21/19 22:29 CAT scan of the head shows no CT evidence of any acute intracranial pathology There has been no definite interval change in comparison of the CT exam of 2017 The calvarium appears intact 12/21/19 22:35 Spoke with the patient and her family and they will follow-up with the patient' s neurologist concerning this repetitive head movement
--- NOTE | 2019-12-21 19:49 | PDOC ---
History of Present Illness - General Chief Complaint: Seizure Stated Complaint: SEIZURES Time Seen by Provider: 12/21/19 19:27 History Source: Patient, Family (daughter) Exam Limitations: No Limitations - History of Present Illness Initial Comments: 12/21/19 19:49 79 yo female pmh seizures, dementia, HTN, hypothyroidism presents to the ED from adult day program for concerns of repetitive seizures. Daughter at the bedside provides HPI. Pt was in the ED yesterday for seizure like activity, Pt Neurologist contacted (Dr. Kathleen Gupta), noted depakote subtherapeutic Valproic Acid and recommended increasing dose to total 1750 mg daily (750mg in the am and 1000mg pm) and f/u clinic appointment 12/27/19 at 4:15. Daughter states while at the adult day program today, Dr. Flores, Pt PCP witnessed another episode of altered consciousness with the patient "zoning out " and looking to the left. Dr. Flores recommended return to the ED for CT scan. Daughter states these episodes have occurred in the past but since Friday, it has been occurring much more frequently. It lasts approx 10-15 seconds and pt noted to return to baseline immediately. Pt noted to have greater than 10 episodes per day. Pt is at her baseline mentation in between episodes. Pt denies any new symptoms including CHUNG, LOC, changes in vision, weakness or sensory deficits on t side, neck pain, CP, SOB, abdominal pain Past History - Past Medical History Allergies/Adverse Reactions: Allergies Allergy/AdvReac Type Severity Reaction Status Date / Time Penicillins Allergy Verified 12/21/19 19:08 Home Medications: Ambulatory Orders Levothyroxine [Synthroid -] 75 mcg PO DAILY 05/20/18 Memantine HCl [Namenda -] 5 mg PO BID #60 tablet 05/27/18 Calcium Carbonate/Vitamin D3 [Calcium 500-Vit D3 400 Tablet] 1 tab PO BID Divalproex [Depakote -] 500 mg PO DAILY #7 tablet.ec 12/20/19 Divalproex [Depakote -] 750 mg PO DAILY 12/20/19 Levetiracetam 500 mg PO HS 12/20/19 Losartan Potassium 50 mg PO DAILY 12/20/19 levETIRAcetam [Keppra Xr -] 750 mg PO AM 03/02/20 Anemia: No Asthma: No Cancer: No Cardiac Disorders: No CVA: No COPD: No CHF: No DVT: No Dementia: Yes Diabetes: No GI Disorders: No Disorders: No HTN: Yes Hypercholesterolemia: No Liver Disease: No Psychiatric Problems: (mild dementia) Seizures: Yes Thyroid Disease: Yes - Surgical History Abdominal Surgery: No Appendectomy: No Cardiac Surgery: No Cholecystectomy: Yes Lung Surgery: No Neurologic Surgery: No Orthopedic Surgery: No - Immunization History Immunization Up to Date: Yes - Psycho Social/Smoking Cessation Hx Smoking Status: No Smoking History: Never smoked Have you smoked in the past 12 months: No Number of Cigarettes Smoked Daily: 0 Hx Alcohol Use: No Drug/Substance Use Hx: No Substance Use Type: None Hx Substance Use Treatment: No Review of Systems - Review of Systems Constitutional: Yes: See HPI HEENTM: Yes: See HPI Respiratory: Yes: See HPI Cardiac (ROS): Yes: See HPI ABD/GI: Yes: See HPI : Yes: See HPI Musculoskeletal: Yes: See HPI Integumentary: Yes: See HPI Neurological: Yes: See HPI *Physical Exam - Vital Signs Last Vital Signs Temp Pulse Resp BP Pulse Ox 97.8 F 67 18 144/42 L 99 12/21/19 19:05 12/21/19 19:05 12/21/19 19:05 12/21/19 19:05 12/21/19 19:05 - Physical Exam General Appearance: Yes: Nourished, Appropriately Dressed. No: Apparent Distress HEENT: positive: EOMI, DANIELLA, Normal Voice, TMs Normal Neck: positive: Supple. negative: Carotid bruit, Rigidity, Tender lateral, Tender midline Respiratory/Chest: positive: Lungs Clear, Normal Breath Sounds. negative: Respiratory Distress, Accessory Muscle Use, Rapid RR, Crackles, Rales, Rhonchi, Stridor, Wheezing Cardiovascular: positive: Regular Rhythm, Regular Rate, S1, S2. negative: Edema , JVD, Murmur Vascular Pulses: Dorsalis-Pedis (R): 4+, Doralis-Pedis (L): 4+ Gastrointestinal/Abdominal: positive: Flat, Soft. negative: Pulsatile Mass, Protuberent, Distended, Guarding, Rebound, Tenderness Musculoskeletal: negative: CVA Tenderness Extremity: positive: Normal Capillary Refill, Normal Inspection, Normal Range of Motion Integumentary: positive: Normal Color, Dry, Warm Neurologic: positive: assistant teacher primary II-XII NML intact, Alert, Normal Mood/Affect, Normal Response, Motor Strength 5/5. negative: Fully Oriented (baseline AOX1, currently AOX1), Facial Droop, Numbness, Sensory Deficit ED Treatment Course - RADIOLOGY Radiology Studies Ordered: Category Date Time Status HEAD CT WITHOUT CONTRAST [CT] Stat CT Scan 12/21/19 19:46 Ordered Medical Decision Making - Medical Decision Making 12/21/19 21:27 79 yo female pmh seizures, dementia, HTN, hypothyroidism presents to the ED from adult day program for concerns of repetitive seizures. Daughter at the bedside provides HPI. Pt was in the ED yesterday for seizure like activity, Pt Neurologist contacted (Dr. Kathleen Gupta), noted depakote subtherapeutic Valproic Acid and recommended increasing dose to total 1750 mg daily (750mg in the am and 1000mg pm) and f/u clinic appointment 12/27/19 at 4:15. Daughter states while at the adult day program today, Dr. Flores, Pt PCP witnessed another episode of altered consciousness with the patient "zoning out " and looking to the left. Dr. lFores recommended return to the ED for CT scan. Daughter states these episodes have occurred in the past but since Friday, it has been occurring much more frequently. It lasts approx 10-15 seconds and pt noted to return to baseline immediately. Pt noted to have greater than 10 episodes per day. Pt is at her baseline mentation in between episodes. Pt denies any new symptoms including CHUNG, LOC, changes in vision, weakness or sensory deficits on t side, neck pain, CP, SOB, abdominal pain Vitals Stable Labs and workup yesterday neg, pt safely DC home Discussed with daughter at the bedside (HCP) states she is here for a head CT as per PCP. Labs within 24 hours normal, agrees no repeat labs needed at this time. Will do head CT, EKG and UA Pt has f/u appointment with Neurology within the week. Daughter agrees that if ED work up neg, pt is safe for DC home with f/u PCP and Neurology Pt is taking all medications as prescribed with the increased dose tonight Past notes from neurology in hospital show possible inconsistent presentation with seizures. Pt returns to baseline immediately without post ictal state. New dosage started over the last 24 hours 12/21/19 22:[address] neg for acute changes UA neg for infection (Leuk 2+ but no bacturia, WBC) Pt safe for DC home with PCP f/u and Neuo f/u Daughter aware and understands plan. Shared decision making made to not admit pt with the daughter Discharge - Discharge Information Problems reviewed: Yes Clinical Impression/Diagnosis: Seizure Condition: Stable Disposition: HOME - Admission No - Follow up/Referral - Patient Discharge Instructions Patient Printed Discharge Instructions: DI for Seizure Disorder -- Adult, DI for Alzheimer's Disease Additional Instructions: Please see your Primary Doctor within the next 48 hours and make it to your Neurology appointment as scheduled. Continue taking your anti epileptic medications as prescribed by your Neurologist. Return to the ER for new or concerning symptoms. Thank you - Post Discharge Activity
[2019-12-21 20:28] LABS: EPI CELLS 2.1 /HPF (0-5/HPF); HYALINE CASTS 2 /lpf (0-8); URINE APPEARANCE CLEAR; URINE BACTERIA 11.3 /hpf (NEGATIVE); URINE BILIRUBIN NEGATIVE (NEGATIVE); URINE COLOR YELLOW; URINE GLUCOSE (UA) NEGATIVE (NEGATIVE); URINE KETONE NEGATIVE (NEGATIVE); URINE LEUK ESTERASE 2+ (NEGATIVE); URINE NITRITE NEGATIVE (NEGATIVE); URINE PROTEIN NEGATIVE (NEGATIVE); URINE RBC 1 /hpf (0-4); URINE WBC 8 /hpf (0-5)
[2019-12-21 23:08] VITALS: BP 134/62; PULSE 78
--- NOTE | 2019-12-22 08:43 | EKG ---
Test Reason : Blood Pressure : / mmHG Vent. Rate : 056 BPM Atrial Rate : 056 BPM P-R Int : 146 ms QRS Dur : 084 ms QT Int : 450 ms P-R-T Axes : 078 010 090 degrees QTc Int : 434 ms POOR DATA QUALITY, INTERPRETATION MAY BE ADVERSELY AFFECTED SINUS BRADYCARDIA NONSPECIFIC ST AND T WAVE ABNORMALITY ABNORMAL ECG WHEN COMPARED WITH ECG OF 20-DEC-2019 07:46, PREMATURE VENTRICULAR COMPLEXES ARE NO LONGER PRESENT QUESTIONABLE CHANGE IN QRS DURATION CRITERIA FOR ANTERIOR INFARCT ARE NO LONGER PRESENT CRITERIA FOR ANTEROLATERAL INFARCT ARE NO LONGER PRESENT Confirmed by MD CHI, ANTOINE ([id number]) on 12/22/2019 8:43:28 AM Referred By: Confirmed By:ANTOINE MIRELES MD
== END 2019-12-21 23:00 | disposition home or self-care (01) ==
LOC: JER 19:00
DX: G40.909 Epilepsy, unspecified, not intractable, without status epilepticus (principal); I10 Essential (primary) hypertension; E03.9 Hypothyroidism, unspecified; G30.9 Alzheimer's disease, unspecified; F02.80 Dementia in other diseases classified elsewhere, unspecified severity, without behavioral disturbance, psychotic disturbance, mood disturbance, and anxiety; R89.2 Abnormal level of other drugs, medicaments and biological substances in specimens from other organs, systems and tissues
CPT/HCPCS: 70450-TC; 81003; 87086; 93005; 93010; 99284-25